=== PATIENT | male | born 1985 | race Caucasian/White ===

== ENCOUNTER 2020-07-16 22:17 | Emergency (ER) | payer OTHER, SELFPAY ==
--- NOTE | ~2020-07-16 | CT_ITS ---
EXAMINATION: CT ABDOMEN AND PELVIS WITH CONTRAST CLINICAL INFORMATION: Pain. COMPARISON: None. TECHNIQUE: Contiguous axial thin section helical images of the abdomen and pelvis were performed following the administration of 85 mL of intravenous Omnipaque 3-50. The data set was reformatted in the coronal and sagittal planes and reviewed on an independent workstation. DLP: mGy-cm. FINDINGS: The visualized lung bases are clear. The visualized portions of the heart are unremarkable. The liver is of normal size and attenuation without focal lesions nor intrahepatic biliary ductal dilation. A normal gallbladder is identified. There is no wall thickening or discernible pericholecystic fluid. The spleen, pancreas, adrenal glands are unremarkable. Both kidneys are of normal size and attenuation without hydronephrosis or nephrolithiasis. Following the administration of IV contrast, prompt symmetric nephrograms are displayed. There is no abdominal free fluid. There is neither mesenteric nor retroperitoneal lymphadenopathy. Normal unopacified loops of small and large bowel are identified. A normal appendix is identified. There is no pelvic free fluid. The urinary bladder is unremarkable. There is neither pelvic nor inguinal lymphadenopathy. Bone windows: Neither sclerotic nor lytic bone lesions are identified. CT/CT abdomen pelvis w con IMPRESSION: No acute abdominal or pelvic inflammatory or infectious processes. Automated exposure control (Care Dose) Adjustment of the mA and/or kv according to patient size (this includes techniques or standardized protocols for targeted exams where dose is matched to indication / reason for exam; i.e. extremities or head).
--- NOTE | ~2020-07-16 | US_ITS ---
EXAMINATION: US SCROTUM CLINICAL INFORMATION: Bilateral testicular pain. COMPARISON: None. TECHNIQUE: A sonogram of the scrotum was performed assessing lopez-scale appearance and color Doppler flow. FINDINGS: RIGHT: Right testicle measures 4.6 x 2.0 x 3.2 cm, volume 14.7 mL. Parenchymal echotexture is normal. No focal testicular parenchymal lesions are visualized. Normal symmetric intratesticular flow is visualized. Right epididymal head is normal in size. There is a 2 mm right epididymal head cyst. There is a small right hydrocele. No varicocele is present. LEFT: Left testicle measures 4.2 x 1.8 x 2.6 cm, volume 10.0 mL. Parenchymal echotexture is normal. No focal testicular parenchymal lesions are visualized. Normal symmetric intratesticular flow is visualized. Left epididymal head is normal in size. There is a 7 mm left epididymal head cyst. There is a small left hydrocele. No varicocele is present. US/US scrotum IMPRESSION: Normal testes. No testicular torsion. Small bilateral hydroceles.
--- NOTE | ~2020-07-16 | US_ITS ---
EXAMINATION: US SCROTUM CLINICAL INFORMATION: Bilateral testicular pain. COMPARISON: None. TECHNIQUE: A sonogram of the scrotum was performed assessing lopez-scale appearance and color Doppler flow. FINDINGS: RIGHT: Right testicle measures 4.6 x 2.0 x 3.2 cm, volume 14.7 mL. Parenchymal echotexture is normal. No focal testicular parenchymal lesions are visualized. Normal symmetric intratesticular flow is visualized. Right epididymal head is normal in size. There is a 2 mm right epididymal head cyst. There is a small right hydrocele. No varicocele is present. LEFT: Left testicle measures 4.2 x 1.8 x 2.6 cm, volume 10.0 mL. Parenchymal echotexture is normal. No focal testicular parenchymal lesions are visualized. Normal symmetric intratesticular flow is visualized. Left epididymal head is normal in size. There is a 7 mm left epididymal head cyst. There is a small left hydrocele. No varicocele is present. US/US scrotum doppler IMPRESSION: Normal testes. No testicular torsion. Small bilateral hydroceles.
[2020-07-16 22:22] VITALS: BP 153/89; PULSE 103; RESP 16; TEMP 36.9; O2SAT 97; BMI 47.9
--- NOTE | 2020-07-16 22:41 | ED_ITS ---
HPI - Back Pain/Injury General Chief Complaint: Back Pain/Injury Stated Complaint: back pain Source: patient Mode of arrival: ambulatory Limitations: no limitations History of Present Illness HPI Narrative: 34-year-old male with past medical history of obesity, hypertension, hyperlipidemia, and chronic back pain presents with 10/10 lower back pain that radiates around his flanks into his groin and to bilateral nereida ticles. He states that this pain has been getting worse over the past 3 days, he is unable to stand straight, and states that his testicles hurt more when sitting down. He does not state to have any risk for sexually transmitted infection, does not use any IV drugs, and does not report any falls or trauma. He does not indicate any symptoms indicating cauda equina, and does have full sensation to all extremities. He does have palpitations and intermittent episodes of diaphoresis because of the pain. He does have decreased range of motion secondary to the pain. He denies chest pain or pressure, shortness of breath, shortness of breath on exertion, abdominal pain, abdominal distention dysuria, hematuria, melena, hematochezia, edema, fevers, chills, dizziness,, and loss of balance. MD elicited complaint: back pain Pertinent past history: prior back pain Onset (ago): day(s) Timing: constant Severity: severe Pain scale (0-10): 10 Similar Symptoms Previously: No Quality: tingling, spasming and throbbing Location: lumbar spine Radiation: abdomen, groin and other (Testicles) Exacerbating factors: movement, sitting upright and walking Relieving factors: none Associated symptoms: difficulty walking and other (Testicular pain) Treatments prior to arrival: NSAIDS, acetaminophen and other medications Work related injury: No Related Data Previous Rx's Medication Instructions Recorded diazepam [Valium] 5 mg PO BID PRN #10 tab 07/17/20 oxycodone 5 mg PO Q8H PRN #7 tab 07/17/20 Allergies Allergy/AdvReac Type Severity Reaction Status Date / Time ENVIRONMENTAL Allergy Mild RUNNY Uncoded 07/16/20 22:21 STUFFY NOSE Review of Systems Review of Systems: Constitutional: No Weight loss, No Fever, No Chills, ENT/Mouth: No Hearing loss, No Ear Pain, No Nasal Congestion, No Sinus Pain, No Hoarseness, No sore throat, No Rhinorrhea, No Swallowing Difficulty Cardiovascular: No Chest Pain, No SOB Respiratory: No Cough, No Dyspnea Gastrointestinal: Positive groin pain bilaterally, No Nausea, No Vomiting, No Diarrhea, No abdominal Pain, No Hematochezia, No Melena Genitourinary: Positive testicular pain, No Dysuria, No Urinary Frequency, No Hematuria, No Urinary Incontinence, Musculoskeletal: positive back pain Skin: No Skin Lesions, No rash Neuro: No Weakness, No Numbness, No Paresthesias, no loss of bowel or bladder in continence, no saddle anesthesia Yes all other systems are reviewed and are negative [facility] Past Medical History Attestation statement: The following information was validated with the patient. Source: old records reviewed Medical History Asthma High cholesterol Hypertension Social History Social History Advance Directives: No Advance Directives Information Provided: No Physical Exam Vital Signs: Vital Signs: Last Vital Signs Temp 98.9 F 07/16/20 23:51 Pulse 78 07/16/20 23:51 Resp 18 07/16/20 23:51 BP 113/75 07/16/20 23:51 Pulse Ox 98 07/16/20 23:51 Body Mass Index 47.9 Appearance: Alert. Oriented X3. Moderate distress. Head: Normal external exam. Normocephalic. Atraumatic. No Bowling signs noted. No raccoon eyes noted Eyes: PERRLA. EOMI. Conjunctiva and sclera normal. Eyelids normal. ENT: TM's Normal. Pharynx normal. Uvula midline. Moist mucous membranes. No trismus noted. No drooling noted. No muffled voice noted. Neck: Normal inspection. Neck supple. No adenopathy. No meningeal signs. CVS: Tachycardic heart rate and rhythm. Heart sound normal. No murmurs noted. Pulses equal to all extremities. Respiratory: No respiratory distress. Painless inspiration. Breath sounds normal. No wheezes/rales/rhonchi noted. Chest nontender. No accessory muscle usage noted or decreased air movement noted. Abdomen: Soft and nontender, obese. Bowel sounds normal in all 4 quadrants. No distention noted. No organomegaly noted. No visible injury noted. Back: Positive bilateral CVA tenderness. Decreased spinal range of motion noted. Unable to stand up straight. Genitourinary: Penis and testicle physically normal, no hydrocele or varicocele noted, no testicular masses, pain increased on testicular elevation. Sensation normal. No penile discharge or lesions noted. Skin: Skin warm and dry. Normal skin color. Normal skin turgor. No rashes/lesions/lacerations noted. Extremities: No lower extremity edema. Extremities exhibit normal range of motion. Extremities nontender. Neuro: cranial nerves 2-12 intact, no focal neural deficits, strength 5/5 to all extremities, No motor deficit. No sensory deficit. Patellar Reflexes normal. Course Course Course Narrative: 34-year-old male with past medical history of obesity, hypertension, hyperlipidemia, and chronic back pain presents with 10/10 lower back pain that radiates around his flanks into his groin and to bilateral testi cles. He states that this pain has been getting worse over the past 3 days, he is unable to stand straight, and states that his testicles hurt more when sitting down. Plan of care is for CBC, Chem 7, urinalysis, scrotal ultrasound, CT scan of abdomen and pelvis. Labs unremarkable, scrotal ultrasound shows small hydroceles bilaterally, CT abdomen pelvis negative for acute findings requiring emergent intervention. Plan of care to discharge home with supportive measures, follow up with Urology as well as pain management. Patient verbalized understanding of and agrees plan of care to discharge home. MDM - Back Pain/Injury MDM Narrative Medical decision making narrative: Testicular torsion, varicocele, hydrocele Differential Diagnosis Differential diagnosis: Likely lumbar radiculopathy, sciatica, strain of lumbar region, pyelonephritis and discitis Medical Records Attestation: I reviewed the patient's medical records. Lab Data Attestation: I reviewed the patient's lab results. Result diagrams: 07/16/20 23:37 07/16/20 23:37 Labs: Lab Results 07/16/20 07/16/20 Range/Units 23:37 23:37 WBC 11.5 H (4.8-10.8) X10*3/uL RBC 5.38 (4.60-5.80) X10*6/uL Hgb 14.8 (14.0-18.0) g/dl Hct 43.9 (42-52) % MCV 81.6 (80-98) fL MCH 27.5 (27.0-33.0) pg MCHC 33.7 (31.0-36.0) g/dl RDW 13.0 (11.0-16.0) % Plt Count 284 (160-400) X10*3/uL MPV 9.8 (9.4-12.4) fL Immature Gran % (Auto) 0.3 (0.0-0.4) % Neut % (Auto) 65.6 (45-73) % Lymph % (Auto) 24.3 (20-40) % [place] % (Auto) 8.5 (2-11) % Eos % (Auto) 1.0 (0-4) % Baso % (Auto) 0.3 (0-2) % Lymph # (Auto) 2.8 (1.2-4.9) X10*3/uL [place] # (Auto) 1.0 (0.1-1.2) X10*3/uL Eos # (Auto) 0.1 (0.0-0.4) X10*3/uL Baso # (Auto) 0.0 (0.0-0.2) X10*3/uL Abs Immat Gran (auto) 0.04 H (0.00-0.03) X10*3/uL Absolute Neuts (auto) 7.5 (2.0-8.3) X10*3/uL Absolute Nucleated RBC 0.000 (0.0-0.012) X10*3/uL Nucleated RBC % (auto) 0.0 (0.0-0.2) /100WBC Sodium 140 (135-145) mmol/L Potassium 4.1 (3.3-5.1) mmol/L Chloride 105 (96-108) mmol/L Carbon Dioxide 24 (22-29) mmol/L Anion Gap 15 (12-20) BUN 14 (9-16) mg/dL Creatinine 0.98 (0.5-1.4) mg/dL Estim Creat Clear Calc 140.2 Estimated GFR > 60 Random Glucose 103 (60-115) mg/dL Calcium 9.5 (8.4-10.2) mg/dL Imaging Data CT abdomen pelvis: Attestation: I personally reviewed and interpreted this imaging study as follows: Radiologist's impression: EXAMINATION: CT ABDOMEN AND PELVIS WITH CONTRAST CLINICAL INFORMATION: Pain. COMPARISON: None. TECHNIQUE: Contiguous axial thin section helical images of the abdomen and pelvis were performed following the administration of 85 mL of intravenous Omnipaque 3-50. The data set was reformatted in the coronal and sagittal planes and reviewed on an independent workstation. DLP: mGy-cm. FINDINGS: The visualized lung bases are clear. The visualized portions of the heart are unremarkable. The liver is of normal size and attenuation without focal lesions nor intrahepatic biliary ductal dilation. A normal gallbladder is identified. There is no wall thickening or discernible pericholecystic fluid. The spleen, pancreas, adrenal glands are unremarkable. Both kidneys are of normal size and attenuation without hydronephrosis or nephrolithiasis. Following the administration of IV contrast, prompt symmetric nephrograms are displayed. There is no abdominal free fluid. There is neither mesenteric nor retroperitoneal lymphadenopathy. Normal unopacified loops of small and large bowel are identified. A normal appendix is identified. There is no pelvic free fluid. The urinary bladder is unremarkable. There is neither pelvic nor inguinal lymphadenopathy. Bone windows: Neither sclerotic nor lytic bone lesions are identified. CT/CT abdomen pelvis w con IMPRESSION: No acute abdominal or pelvic inflammatory or infectious processes. Automated exposure control (Care Dose) Adjustment of the mA and/or kv according to patient size (this includes techniques or standardized protocols for targeted exams where dose is matched to indication / reason for exam; i.e. extremities or head). Scrotal ultrasound: Attestation: I personally reviewed and interpreted this imaging study as follows: Radiologist's impression: EXAMINATION: US SCROTUM CLINICAL INFORMATION: Bilateral testicular pain. COMPARISON: None. TECHNIQUE: A sonogram of the scrotum was performed assessing lopez-scale appearance and color Doppler flow. FINDINGS: RIGHT: Right testicle measures 4.6 x 2.0 x 3.2 cm, volume 14.7 mL. Parenchymal echotexture is normal. No focal testicular parenchymal lesions are visualized. Normal symmetric intratesticular flow is visualized. Right epididymal head is normal in size. There is a 2 mm right epididymal head cyst. There is a small right hydrocele. No varicocele is present. LEFT: Left testicle measures 4.2 x 1.8 x 2.6 cm, volume 10.0 mL. Parenchymal echotexture is normal. No focal testicular parenchymal lesions are visualized. Normal symmetric intratesticular flow is visualized. Left epididymal head is normal in size. There is a 7 mm left epididymal head cyst. There is a small left hydrocele. No varicocele is present. US/US scrotum IMPRESSION: Normal testes. No testicular torsion. Small bilateral hydroceles. Discharge Plan Discharge Clinical Impression: Lumbar radiculopathy Strain of lumbar region Qualifiers: Encounter type: initial encounter Qualified Code(s): S39.012A - Strain of muscle, fascia and tendon of lower back, initial encounter Sciatica Qualifiers: Laterality: bilateral Qualified Code(s): M54.31 - Sciatica, right side Degenerative disc disease Qualifiers: Spinal region: lumbar Qualified Code(s): M51.36 - Other intervertebral disc degeneration, lumbar region Patient Disposition: Home, Self-Care Instructions: Sciatica (ED), Degenerative Disc Disease (ED) Additional Instructions: You were evaluated for lower back pain and spasms. You do have known degenerative disc disease, CT scan does not show any abnormal findings requiring emergent neurological intervention. We will prescribe Valium for muscle spasms, and oxycodone for pain management. Oxycodone is a narcotic and has a high risk for addiction and abuse. Do not drive or operate machinery while taking this medication. This medication can increase risk for falls, cause constipation, and delayed reaction time Valium is a benzo diazepam and has high risk for addiction and abuse. Do not drive or operate machinery while taking this medication. Do not use alcohol with oxycodone or Valium. You must follow-up with Pain Management, Dr. Mullins. It is highly recommended that you have an MRI as an outpatient to further investigate your back pain. Your scrotal ultrasound showed bilateral small hydroceles. You may consider following up with Urology. I have provided you with a referral number for Dr. Stoner. Thank you for choosing this emergency department for evaluation. Please follow-up with primary care physician as needed. Return to the emergency department for any new, concerning, or worsening symptoms. Prescriptions: New oxycodone 5 mg tablet 5 mg PO Q8H PRN (Reason: pain) Qty: 7 RF: 0 diazepam [Valium] 5 mg tablet 5 mg PO BID PRN (Reason: muscle spasm) Qty: 10 RF: 0 Referrals: Ovidio Stoner MD [Physician] - 2 days (Bilateral hydrocele) Luca Mullins MD [Physician] - 2 days (Lower back pain, muscular spasms, sciatica, degenerative disc disease)
[2020-07-16] MEDS: diazePAM 5 MG TABLET PO (23:38)
[2020-07-16 23:39] VITALS: RESP 22
[2020-07-16] MEDS: Morphine Sulfate 4 MG/ML CARTRIDGE IVPUSH (23:39)
[2020-07-16] MEDS: Ketorolac Tromethamine 30 MG/ML VIAL IVPUSH (23:39)
[2020-07-16] MEDS: 0.9 % Sodium Chloride 1,000 ML 999 ML IVCONT (23:40)
[2020-07-16 23:43] LABS: MANUAL DIFF FLAG NO
[2020-07-16 23:44] LABS: Basophils Percent Auto 0.3 % (0-2); Eosinophils Absolute Auto 0.1 X10*3/uL (0.0-0.4); Hematocrit 43.9 % (42-52); Hemoglobin 14.8 g/dl (14.0-18.0); Imm Gran Abs Auto 0.04 X10*3/uL (0.00-0.03); Imm Gran Pct Auto 0.3 % (0.0-0.4); Lymphocytes Absolute Auto 2.8 X10*3/uL (1.2-4.9); Lymphocytes Percent Auto 24.3 % (20-40); Mean Corpuscular HGB Conc 33.7 g/dl (31.0-36.0); Mean Corpuscular Hemoglobin 27.5 pg (27.0-33.0); Mean Corpuscular Volume 81.6 fL (80-98); Mean Platelet Volume 9.8 fL (9.4-12.4); Monocytes Percent Auto 8.5 % (2-11); Neutrophils Absolute Auto 7.5 X10*3/uL (2.0-8.3); Neutrophils Percent Auto 65.6 % (45-73); Platelet Count 284 X10*3/uL (160-400); Red Blood Count 5.38 X10*6/uL (4.60-5.80); White Blood Count 11.5 X10*3/uL (4.8-10.8)
[2020-07-16 23:51] VITALS: BP 113/75; PULSE 78; RESP 18; TEMP 37.2; O2SAT 98
[2020-07-17 00:09] LABS: Anion Gap 15 (12-20); Blood Urea Nitrogen 14 mg/dL (9-16); Calcium 9.5 mg/dL (8.4-10.2); Carbon Dioxide 24 mmol/L (22-29); Chloride 105 mmol/L (96-108); Creatinine Clr Calc Pharmacy 140.2; Estimated Glomerular Filt Rate > 60; Glucose Random 103 mg/dL (60-115); Potassium 4.1 mmol/L (3.3-5.1); Sodium 140 mmol/L (135-145)
[2020-07-17] MEDS: iohexoL 350 MG/ML 100 ML INFUS..BTL 85 ML IV (00:50)
[2020-07-17 01:57] LABS: Appearance Urine CLEAR; Color Urine YELLOW; Glucose Urine UA NEG (NEG); Leukocyte Esterase Urine NEG (NEG); Nitrite Urine NEG (NEG); Specific Gravity - Urine 1.015 (1.005-1.025); Urine Blood NEG (NEG); Urine Ketones NEG (NEG); Urine Protein NEG (NEG-TRACE)
== END 2020-07-17 01:54 | disposition home or self-care (01) ==
PROVIDERS: Nurse Practitioner Family; Emergency Provider Emergency Medicine
DX: M54.16 Radiculopathy, lumbar region (principal); M54.41 Lumbago with sciatica, right side; M51.36 Other intervertebral disc degeneration, lumbar region; S39.012A Strain of muscle, fascia and tendon of lower back, initial encounter; X58.XXXA Exposure to other specified factors, initial encounter; I10 Essential (primary) hypertension; E78.5 Hyperlipidemia, unspecified; Y93.9 Activity, unspecified; Y92.9 Unspecified place or not applicable; Y99.9 Unspecified external cause status
CPT/HCPCS: 36415; 74177; 76870; 80048; 81003; 85025; 93975; 96361; 96374; 96375; 99284; J1885; J2270; Q9967

== ENCOUNTER 2020-11-29 10:03 | Emergency (ER) | payer OTHER, SELFPAY ==
[2020-11-29 10:38] VITALS: BP 159/97; PULSE 92; RESP 18; TEMP 36.4; O2SAT 99; BMI 47.0
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
== END 2020-11-29 11:36 | disposition home or self-care (01) ==
PROVIDERS: Emergency Provider Emergency Medicine; PCP Internal Medicine
DX: R51.9 Headache, unspecified (principal); S16.1XXA Strain of muscle, fascia and tendon at neck level, initial encounter; S39.012A Strain of muscle, fascia and tendon of lower back, initial encounter; V43.52XA Car driver injured in collision with other type car in traffic accident, initial encounter; I10 Essential (primary) hypertension; Y93.89 Activity, other specified; Y92.414 Local residential or business street as the place of occurrence of the external cause; Y99.9 Unspecified external cause status
CPT/HCPCS: 99283

== ENCOUNTER 2021-02-02 11:09 | Observation (INO) | payer OTHER, SELFPAY ==
--- NOTE | ~2021-02-02 | XR_ITS ---
EXAMINATION: XR CHEST CLINICAL INFORMATION: Chest pain. COMPARISON: Chest radiograph dated from 02/06/2017. TECHNIQUE: AP view of the chest was obtained. FINDINGS: No significant abnormality is noted involving the heart, lungs, mediastinum, bony thorax or soft tissues. XR/XR chest 1V IMPRESSION: Unremarkable examination.
--- NOTE | ~2021-02-02 | CT_ITS ---
EXAMINATION: CT ABDOMEN AND PELVIS WITHOUT CONTRAST CLINICAL INFORMATION: Left-sided abdominal pain. Rule out diverticulitis. COMPARISON: CT abdomen/pelvis dated from 07/17/2020. TECHNIQUE: Multidetector volumetric imaging was performed from the superior aspect of the liver through the pubic symphysis. Sagittal and coronal reformatted images were obtained on the technologist's workstation. This CT examination was performed using dose optimization techniques as appropriate, variously including the following: *Automated exposure control *Adjustment of mA and/or kV according to patient size (this includes techniques or standardized protocols for targeted exams where dose is matched to indication/reason for exam; i.e. extremities or head) *Use of iterative reconstruction technique DLP: 1202 mGy-cm FINDINGS: LUNG BASES: Minimal mosaic attenuation of the lung bases suggesting some degree of air trapping or expiratory images. Mild subsegmental atelectasis. No focal consolidation or pleural effusion. No pericardial effusion. LIVER, GALLBLADDER, AND BILIARY TREE: The noncontrast liver is normal in size, shape, and attenuation. No focal hepatic lesion or biliary ductal dilatation is present. The gallbladder is unremarkable with no evidence of radiopaque gallstones, gallbladder wall thickening, or obvious pericholecystic inflammatory changes. PANCREAS: No focal abnormalities. The main pancreatic duct is nondilated. No peripancreatic free fluid or fat stranding. SPLEEN: Unremarkable. ADRENAL GLANDS: Unremarkable. KIDNEYS AND URETERS: The kidneys are normal in size, shape, and attenuation. No hydronephrosis, hydroureter, or calculi seen. No perinephric stranding. BLADDER: Unremarkable. GASTROINTESTINAL TRACT: The stomach and the small bowel are nondilated. There is diverticulosis of the distal colon without significant inflammatory changes to suspect acute diverticulitis. There is a long and fluid-filled appendix measuring up to 10 mm in maximum diameter without significant surrounding inflammatory changes. ABDOMINAL WALL: Small fat-containing umbilical hernia. LYMPH NODES: Mild mesenteric fat stranding at the root of the mesentery for instance as visualized on coronal image 62 of series 5 is unchanged and of uncertain significance. This likely accentuated by volume averaging. No lymphadenopathy. VASCULAR: Unremarkable. PELVIC VISCERA: Unremarkable. OSSEOUS STRUCTURES: No acute or aggressive osseous abnormalities. Unchanged degenerative sclerosis at T12-L1. CT/CT abdomen pelvis wo con IMPRESSION: Colonic diverticulosis without significant associated inflammatory changes to suspect acute diverticulitis. The appendix is prominent but without significant surrounding inflammatory changes or wall thickening. Findings could potentially represent very mild early acute appendicitis and clinical correlation is needed for a definite diagnosis. Other differential consideration is an appendiceal mucocele. The report will be called to the ordering clinician by a [place] [facility] [employer] Broker.
[2021-02-02 11:19] VITALS: BP 173/104; PULSE 81; RESP 18; O2SAT 98; BMI 48.5
--- NOTE | 2021-02-02 12:11 | ECG_ITS ---
Test Reason : CHEST PAIN Blood Pressure : / mmHG Vent. Rate : 076 BPM Atrial Rate : 076 BPM P-R Int : 168 ms QRS Dur : 098 ms QT Int : 376 ms P-R-T Axes : 048 027 -04 degrees QTc Int : 423 ms Normal sinus rhythm Nonspecific T wave abnormality Abnormal ECG No previous ECGs available Referred By: Ginger Perez Electronically Signed By:IDA BEDOYA MD
--- NOTE | 2021-02-02 12:22 | ED.CHESTPAIN ---
HPI - Chest Pain General Chief Complaint: Chest Pain Stated Complaint: ABD PAIN MIGRANE CHEST PAIN Time Seen by Provider: 02/02/21 12:10 Source: patient and family Mode of arrival: ambulatory Limitations: no limitations History of Present Illness HPI narrative: 35-year-old male came in for evaluation of abdominal pain. Patient been having abdominal pain for the last 5 days, feeling nauseous, and vomited , patient also been getting migraines, symptoms is been constant for the past 5 days, described as moderate 5 out of 10, associated with nausea and vomiting every now and then, patient was at work today when he felt nauseous and tried to vomit started to have difficulty breathing and chest pain. Patient was sent to the hospital for further evaluation. Related Data Previous Rx's Medication Instructions Recorded diazepam 5 mg tablet (Valium) 5 mg PO BID PRN #10 tab 07/17/20 oxycodone 5 mg tablet 5 mg PO Q8H PRN #7 tab 07/17/20 cyclobenzaprine 5 mg tablet 5 mg PO TID PRN #14 tab 11/29/20 ibuprofen 600 mg tablet 600 mg PO Q6H PRN #20 tab 11/29/20 oxycodone 5 mg tablet 5 mg PO Q6H PRN #10 tab 11/29/20 Allergies Allergy/AdvReac Type Severity Reaction Status Date / Time ENVIRONMENTAL Allergy Mild RUNNY Uncoded 07/16/20 22:21 STUFFY NOSE Review of Systems Review of Systems: All other systems are reviewed and are negative Constitutional: Reports as per HPI and Reports no additional constitutional complaints Eyes: Reports as per HPI and Reports no additional eye complaints Reports system reviewed and no additional complaints, except as documented Cardiovascular: Reports as per HPI and Reports no additional cardiovascular complaints Respiratory: Reports as per HPI and Reports no additional respiratory complaints Gastrointestinal: Reports as per HPI and Reports no additional gastrointestinal complaints Genitourinary: Reports no additional female genitourinary complaints Musculoskeletal: Reports no additional musculoskeletal complaints Skin/Breast: Reports system reviewed and no additional complaints, except as docu Psychiatric: Reports no additional psychiatric complaints Endocrine: Reports no additional endocrine complaints Hematologic/Lymphatic: Reports no additional hematologic/lymphatic complaints Allergic/Immunologic: Reports no additional allergic/immunologic complaints Reports system reviewed and no additional complaints, except as documented and Reports Abnormal speech present [facility] Past Medical History Medical History (Updated 02/02/21 @ 15:50 by Chi Damon MD) Asthma Chronic back pain Epigastric pain High cholesterol Hypertension Morbid obesity Sleep apnea Social History Social History Advance Directives: Yes Advance Directives Information Provided: Yes Advance Directives on File: No Physical Exam Vital Signs: Vital Signs: Last Vital Signs Pulse 81 02/02/21 15:35 Resp 16 02/02/21 15:35 BP 168/93 H 02/02/21 15:35 Pulse Ox 97 02/02/21 15:35 Body Mass Index 48.5 Vital signs have been reviewed as appeared to be correct. Blood pressure normal. Heart rate normal. Respiration rate normal. Temperature normal. Oxygen saturation normal. Appearance: Alert. Oriented X3. No acute distress. Head: Normal external exam. Normocephalic. Atraumatic. No Bowling signs noted. No raccoon eyes noted Eyes: PERRLA. EOMI. Conjunctiva and sclera normal. Eyelids normal. ENT: TM's Normal. Pharynx normal. Uvula midline. Moist mucous membranes. No trismus noted. No drooling noted. No muffled voice noted. Neck: Normal inspection. Neck supple. FROM. No adenopathy. Thyroid Normal. No meningeal signs. No neck mass noted. CVS: Normal heart rate and rhythm. Heart sound normal. No murmurs noted. Pulses normal throughout. Respiratory: No respiratory distress. Painless inspiration. Breath sounds normal. No wheezes/rales/rhonchi noted. Chest nontender. No accessory muscle usage noted or decreased air movement noted. Abdomen: Soft and nontender. Bowel sounds normal in all 4 quadrants. No distention noted. No organomegaly noted. No visible injury noted. Back: No CVA tenderness. Full range of motion noted. Skin: Skin warm and dry. Normal skin color. Normal skin turgor. No rashes/lesions/lacerations noted. Extremities: No lower extremity edema. Extremities exhibit normal range of motion. Extremities nontender. Neuro: Oriented X 3. Cranial nerve exam: II-XII are grossly intact No motor deficit. No sensory deficit. Reflexes normal. Course Course Course Narrative: Assessment and plan. 35-year-old male came in for abdominal pain, slight leukocytosis, CT of the abdomen pelvis concern of prominent appendix sinus could represent an acute in early appendicitis. Case discussed with Dr. Damon awaiting for surgical evaluation in the emergency department. Reevaluation(s) Reevaluation #1: Patient has been seen and evaluated by Dr. Damon in the emergency department, patient will be admitted for observation and serial abdominal exams. Time: 15:40 MDM - Chest Pain Medical Records Data Attestation: I reviewed the patient's medical records. Lab Data Attestation: I reviewed the patient's lab results. Result diagrams: 02/02/21 12:22 02/02/21 12:22 Labs: Lab Results 02/02/21 02/02/21 02/02/21 Range/Units 12:22 12:22 12:22 WBC 10.9 H (4.8-10.8) X10*3/uL RBC 5.44 (4.60-5.80) X10*6/uL Hgb 15.1 (14.0-18.0) g/dl Hct 45.0 (42.0-52.0) % MCV 82.7 (80.0-98.0) fL MCH 27.8 (27.0-33.0) pg MCHC 33.6 (31.0-36.0) g/dl RDW 13.0 (11.0-16.0) % Plt Count 250 (160-400) X10*3/uL MPV 9.7 (9.4-12.4) fL Immature Gran % (Auto) 0.3 (0.0-0.4) % Neut % (Auto) 77.2 H (45-73) % Lymph % (Auto) 15.9 L (20-40) % [place] % (Auto) 6.1 (2-11) % Eos % (Auto) 0.2 (0-4) % Baso % (Auto) 0.3 (0-2) % Lymph # (Auto) 1.7 (1.2-4.9) X10*3/uL [place] # (Auto) 0.7 (0.1-1.2) X10*3/uL Eos # (Auto) 0.0 (0.0-0.4) X10*3/uL Baso # (Auto) 0.0 (0.0-0.2) X10*3/uL Abs Immat Gran (auto) 0.03 (0.00-0.03) X10*3/uL Absolute Neuts (auto) 8.39 H (2.0-8.3) x10*3/uL Absolute Nucleated RBC 0.000 (0.0-0.012) X10*3/uL Nucleated RBC % (auto) 0.0 (0.0-0.2) /100WBC D-Dimer < 200 NG/ML Sodium 139 (135-145) mmol/L Potassium 3.9 (3.3-5.1) mmol/L Chloride 104 (96-108) mmol/L Carbon Dioxide 27 (22-29) mmol/L Anion Gap 12 (12-20) BUN 10 (9-16) mg/dL Creatinine 0.94 (0.5-1.4) mg/dL Estim Creat Clear Calc 145.9 Estimated GFR > 60 Random Glucose 90 (60-115) mg/dL Calcium 9.2 (8.4-10.2) mg/dL Total Bilirubin 0.5 (0.0-1.0) mg/dL Direct Bilirubin 0.2 (0.0-0.5) mg/dL AST 20 (5-37) U/L ALT 28 (0-40) U/L Alkaline Phosphatase 84 (39-117) U/L Troponin I High Sens (<3.5-35.0) ng/L Total Protein 8.1 H (6.5-8.0) g/dL Albumin 4.5 (3.5-5.0) g/dL Lipase 22 (8-78) U/L 02/02/21 Range/Units 12:22 WBC (4.8-10.8) X10*3/uL RBC (4.60-5.80) X10*6/uL Hgb (14.0-18.0) g/dl Hct (42.0-52.0) % MCV (80.0-98.0) fL MCH (27.0-33.0) pg MCHC (31.0-36.0) g/dl RDW (11.0-16.0) % Plt Count (160-400) X10*3/uL MPV (9.4-12.4) fL Immature Gran % (Auto) (0.0-0.4) % Neut % (Auto) (45-73) % Lymph % (Auto) (20-40) % [place] % (Auto) (2-11) % Eos % (Auto) (0-4) % Baso % (Auto) (0-2) % Lymph # (Auto) (1.2-4.9) X10*3/uL [place] # (Auto) (0.1-1.2) X10*3/uL Eos # (Auto) (0.0-0.4) X10*3/uL Baso # (Auto) (0.0-0.2) X10*3/uL Abs Immat Gran (auto) (0.00-0.03) X10*3/uL Absolute Neuts (auto) (2.0-8.3) x10*3/uL Absolute Nucleated RBC (0.0-0.012) X10*3/uL Nucleated RBC % (auto) (0.0-0.2) /100WBC D-Dimer NG/ML Sodium (135-145) mmol/L Potassium (3.3-5.1) mmol/L Chloride (96-108) mmol/L Carbon Dioxide (22-29) mmol/L Anion Gap (12-20) BUN (9-16) mg/dL Creatinine (0.5-1.4) mg/dL Estim Creat Clear Calc Estimated GFR Random Glucose (60-115) mg/dL Calcium (8.4-10.2) mg/dL Total Bilirubin (0.0-1.0) mg/dL Direct Bilirubin (0.0-0.5) mg/dL AST (5-37) U/L ALT (0-40) U/L Alkaline Phosphatase (39-117) U/L Troponin I High Sens < 3.5 (<3.5-35.0) ng/L Total Protein (6.5-8.0) g/dL Albumin (3.5-5.0) g/dL Lipase (8-78) U/L Imaging Data CT scan - abdomen: Radiologist's impression: Colonic diverticulosis without significant associated inflammatory changes to suspect acute diverticulitis. ? The appendix is prominent but without significant surrounding inflammatory changes or wall thickening. Findings could potentially represent very mild early acute appendicitis and clinical correlation is needed for a definite diagnosis. Other differential consideration is an appendiceal mucocele. ? The report will be called to the ordering clinician by a [place] Radiology Physician Market Research Interviewer. Chest x-ray: Attestation: I personally reviewed and interpreted this imaging study as follows: Radiologist's impression: No acute intrathoracic pathology. ECG Data ECG #1: Attestation: I personally reviewed and interpreted this ECG as follows: Interpretation: Normal sinus rhythm at 76 beats per minute, normal axis deviation, normal intervals, no ST-T changes. Discharge Plan Discharge Clinical Impression: Atypical chest pain, Abdominal pain Patient Disposition: Admitted As Inpatient
[2021-02-02 12:29] LABS: MANUAL DIFF FLAG NO
[2021-02-02 12:31] LABS: Basophils Percent Auto 0.3 % (0-2); Eosinophils Percent Auto 0.2 % (0-4); Hemoglobin 15.1 g/dl (14.0-18.0); Imm Gran Abs Auto 0.03 X10*3/uL (0.00-0.03); Imm Gran Pct Auto 0.3 % (0.0-0.4); Lymphocytes Absolute Auto 1.7 X10*3/uL (1.2-4.9); Lymphocytes Percent Auto 15.9 % (20-40); Mean Corpuscular HGB Conc 33.6 g/dl (31.0-36.0); Mean Corpuscular Hemoglobin 27.8 pg (27.0-33.0); Mean Corpuscular Volume 82.7 fL (80.0-98.0); Mean Platelet Volume 9.7 fL (9.4-12.4); Monocytes Absolute Auto 0.7 X10*3/uL (0.1-1.2); Monocytes Percent Auto 6.1 % (2-11); Neutrophils Absolute Auto 8.39 x10*3/uL (2.0-8.3); Neutrophils Percent Auto 77.2 % (45-73); Platelet Count 250 X10*3/uL (160-400); Red Blood Count 5.44 X10*6/uL (4.60-5.80); White Blood Count 10.9 X10*3/uL (4.8-10.8)
[2021-02-02 12:46] LABS: D Dimer < 200 NG/ML
[2021-02-02 12:51] LABS: Alanine Aminotransferase 28 U/L (0-40); Albumin Level 4.5 g/dL (3.5-5.0); Alkaline Phosphatase 84 U/L (39-117); Anion Gap 12 (12-20); Aspartate Amino Transferase 20 U/L (5-37); Bilirubin Direct 0.2 mg/dL (0.0-0.5); Bilirubin Total 0.5 mg/dL (0.0-1.0); Blood Urea Nitrogen 10 mg/dL (9-16); Calcium 9.2 mg/dL (8.4-10.2); Carbon Dioxide 27 mmol/L (22-29); Chloride 104 mmol/L (96-108); Creatinine Clr Calc Pharmacy 145.9; Estimated Glomerular Filt Rate > 60; Glucose Random 90 mg/dL (60-115); Lipase 22 U/L (8-78); Potassium 3.9 mmol/L (3.3-5.1); Sodium 139 mmol/L (135-145); Total Protein 8.1 g/dL (6.5-8.0)
[2021-02-02 12:56] LABS: Troponin-I High Sensitivity < 3.5 ng/L (<3.5-35.0)
[2021-02-02 13:40] VITALS: BP 152/89; PULSE 74; RESP 13; O2SAT 98
[2021-02-02 15:35] VITALS: BP 168/93; PULSE 81; RESP 16; O2SAT 97
--- NOTE | 2021-02-02 15:36 | P.HPGS_ITS ---
History of Present Illness History of Present Illness Date of Service: 02/07/21 Chief complaint: Abdominal pain Narrative: Castro Taylor is a 35 year old male referred to me because of abdominal pain. He says he has been having this vague abdominal pain mostly epigastric area for 5-6 days now. He said this is been going to work regardless. He also says that he has been having chest pain the whole time. He says he was at work today in [facility] and he went to [facility] [employer] because of his chest pain and abdominal pain. He was therefore sent to the ER because of this. He also describes severe migraine for the past several days now. He describes being constipated chronically. He denies any nausea or vomiting. He also says he has sleep apnea and uses a CPAP at night. Review of Systems Constitutional: Constitutional: Denies chills and Denies fever(s) Cardiovascular: Cardiovascular: Denies chest pain, Denies dyspnea and Denies dyspnea on exertion Respiratory: Respiratory: Denies cough, Denies dyspnea and Denies dyspnea on exertion Gastrointestinal: Gastrointestinal: Denies hematochezia, Denies change in bowel habits and Reports constipation Genitourinary: Genitourinary: Denies hematuria and Denies difficulty urinating Musculoskeletal: Musculoskeletal: Reports back pain and Denies limited range of motion Neurologic: Denies focal weakness and Denies convulsions Psychiatric: Psychiatric: Denies depression and Denies mood swings PMFSH Past Medical History Medical History Asthma Chronic back pain Epigastric pain High cholesterol Hypertension Morbid obesity Sleep apnea Social History Social History (Updated 02/02/21 @ 18:07 by BARBIE Maravilla) Alcohol intake: never Patient Tobacco Use Status: Never used Tobacco Advance Directives Date on File: 02/03/21 service: No Current occupational status: employed Meds Allergies Allergy/AdvReac Type Severity Reaction Status Date / Time ENVIRONMENTAL Allergy Mild RUNNY Uncoded 07/16/20 22:21 STUFFY NOSE Home Medications Medication Instructions Recorded Confirmed Last Taken Type amlodipine 10 mg tablet 1 tab PO DAILY 02/02/21 02/02/21 02/02/21 History atorvastatin 20 mg tablet 1 tab PO DAILY 02/02/21 02/02/21 02/02/21 History lisinopril 10 mg tablet 1 tab PO DAILY 02/02/21 02/02/21 02/02/21 History Physical Exam Vital Signs: Vital Signs: Last Vital Signs Pulse 81 02/02/21 15:35 Resp 16 02/02/21 15:35 BP 168/93 H 02/02/21 15:35 Pulse Ox 97 02/02/21 15:35 Body Mass Index 48.5 Const: Other: Morbidly obese, appears anxious General: comfortable and no acute distress Orientation/consciousness: patient oriented x3 Neck: Neck: Yes no lymphadenopathy Resp: Auscultation: clear to auscultation bilaterally Cardio: Rhythm: regular rhythm GI: Other: Obese, soft, mild diffuse tenderness mostly in the epigastric area, no rebound or guarding, no Rovsing sign Palpation (GI): Soft to palpation and no guarding Neuro: General: patient oriented x3 Results Results Labs: Short CBC 02/02/21 Range/Units 12:22 WBC 10.9 H (4.8-10.8) X10*3/uL Hgb 15.1 (14.0-18.0) g/dl Hct 45.0 (42.0-52.0) % Plt Count 250 (160-400) X10*3/uL BMP 02/02/21 12:22 Sodium 139 Potassium 3.9 Chloride 104 Carbon Dioxide 27 BUN 10 Creatinine 0.94 Calcium 9.2 Liver Function 02/02/21 Range/Units 12:22 Total Bilirubin 0.5 (0.0-1.0) mg/dL Direct Bilirubin 0.2 (0.0-0.5) mg/dL AST 20 (5-37) U/L ALT 28 (0-40) U/L Alkaline Phosphatase 84 (39-117) U/L Albumin 4.5 (3.5-5.0) g/dL Abdomen CT scan report/results: report reviewed and image reviewed CT scan - chest: report reviewed and image reviewed Assessment and Plan (1) Epigastric pain: Status: Acute 35-year-old male with multiple complaints. He describes abdominal pain mostly in the epigastric area. He also says that he has chest pain and migraines. He says that he has been having this symptoms since Saturday which is about 5-6 days ago. He has no leukocytosis. His CAT scan shows as very minimally distended appendix with no inflammatory changes. Overall clinical picture is not consistent with acute appendicitis especially with duration and examination. He says that the pain is mostly in the epigastric area. He also describes chest pain but he has been worked up by the emergency physician. I discussed this with the ER staff and he has been ruled out for any cardiac pathology. I have reviewed his CAT scan and I do not see any other pathology. I will admit him for observation. He will be kept on clear liquids. I will ask for a hospitalist service in view of his hypertension and chest pain. His significant other Melanie was with him during the entire discussion. Quality Stroke Does the patient have a stroke diagnosis?: No VTE Prior VTE?: No VTE Risk Level:: Surgical - low VTE Device Contraindication: Treatment Not Indicated VTE Drug Contraindication: Treatment Not Indicated Procedures Date of Service Date of Service: 02/02/21
[2021-02-02 16:05] VITALS: BP 140/90; PULSE 74; RESP 16; TEMP 37.1; O2SAT 96
--- NOTE | 2021-02-02 17:06 | PHA.MEDREC ---
Pharmacy Consult ? Medication Reconciliation Pharmacy has completed the medication reconciliation. There are no remarkable issue for provider's attention. Cici Pacheco, ShefaliD
--- NOTE | 2021-02-02 17:29 | PM.EVENT ---
Event Note Date of Service: 02/02/21 Event Note: pt seen and examined c/o epig pain abd soft stable VS ?gastritis, PUD clinically not appendicitis PPI explained plan to pt he understands
--- NOTE | 2021-02-02 18:02 | P.CONIM_ITS ---
History of Present Illness Data of Consult Service Date: 02/02/21 <BARBIE Maravilla - Last Filed: 02/02/21 18:22> Requesting physician: Chi Damon <BARBIE Maravilla - Last Filed: 02/02/21 18:22> Primary Care Provider: Kevyn Clark MD <BARBIE Maravilla - Last Filed: 02/02/21 18:22> HPI Reason for consult: Hypertension, chest pain <BARBIE Maravilla Last Filed: 02/02/21 18:22> This is a 35-year-old male who presents to the emergency department with multiple complaints. He states for the past 7 days he has been having generalized abdominal pain worse in the epigastric region. He has had associated nausea and vomiting. He denies any diarrhea and reports constipation for the past 2-3 days. After an episode of vomiting today he also began having left-sided chest pain which does not change with movement or deep inspiration. It is reproducible on physical exam. He presented to the emergency department due to his persistent abdominal pain. Lab work was unremarkable. He underwent CT scan of the abdomen which showed prominent appendix without significant surrounding inflammatory changes or wall thickening. Findings could represent very mild early acute appendicitis. Although this was thought to be less likely related to appendicitis he was admitted to the surgical service for observation overnight. The hospitalists were asked to see him in consultation due to hypertension and chest pain. <BARBIE Maravilla - Last Filed: 02/02/21 18:22> Review of Systems Review of Systems: Yes all other systems are reviewed and are negative <BARBIE Maravilla Last Filed: 02/02/21 18:22> Constitutional: Constitutional: Denies chills and Denies fever(s) <BARBIE Maravilla Last Filed: 02/02/21 18:22> Cardiovascular: Cardiovascular: Reports chest pain, Reports Epigastric Pain and Denies dyspnea <BARBIE Maravilla Last Filed: 02/02/21 18:22> Respiratory: Respiratory: Denies cough and Denies dyspnea <BARBIE Maravilla Last Filed: 02/02/21 18:22> Gastrointestinal: Gastrointestinal: Reports constipation <BARBIE Maravilla Last Filed: 02/02/21 18:22> [facility] Medical History: Medical History Asthma Chronic back pain Epigastric pain High cholesterol Hypertension Morbid obesity Sleep apnea <BARBIE Maravilla - Last Filed: 02/02/21 18:22> Functional capacity: independent ambulation <BARBIE Maravilla - Last Filed: 02/02/21 18:22> Pertinent family history: dad - [place] multiple family members with diabetes <BARBIE Maravilla - Last Filed: 02/02/21 18:22> Social History: Social History (Updated 02/02/21 @ 18:07 by BARBIE Maravilla) Alcohol intake: never Patient Tobacco Use Status: Never used Tobacco Use of substances other than those prescribed or required for medical reasons: No Advance Directives: Yes Advance Directives Information Provided: Yes Advance Directives on File: No <BARBIE Maravilla - Last Filed: 02/02/21 18:22> Meds Allergies/Adverse reactions: Allergies Allergy/AdvReac Type Severity Reaction Status Date / Time ENVIRONMENTAL Allergy Mild RUNNY Uncoded 07/16/20 22:21 STUFFY NOSE <BARBIE Maravilla - Last Filed: 02/02/21 18:22> Active Medications: Current Medications Amlodipine Besylate (Amlodipine Besylate 10 Mg Tablet) 10 mg PO DAILY [facility]; Protocol Atorvastatin Calcium (Atorvastatin Calcium 20 Mg Tablet) 20 mg PO DAILY [facility] Sodium Chloride (Ns) 1,000 mls @ 100 mls/hr IVCONT .Q10H [facility] Lisinopril (Lisinopril 10 Mg Tablet) 10 mg PO DAILY K[facility]; Protocol Morphine Sulfate (Morphine Sulfate 2 Mg/Ml Cartridge) 2 mg IVPUSH Q3H PRN; Protocol PRN Reason: Pain, Severe (Pain Scale 7-10) Ondansetron HCl (Ondansetron Hcl 4 Mg/2 Ml Vial) 4 mg IVPUSH Q8H PRN PRN Reason: nausea Pharmacy Consult (Consult Rx Perform Med Rec) 1 each MISCELLANE ONCE PRN PRN Reason: Consult order Sodium Chloride (0.9 % Sodium Chloride Flush 3 Ml Syringe) 3 ml IVFLUSH QSHIFT KIMBERLY <BARBIE Maravilla - Last Filed: 02/02/21 18:22> Home medications: Home Medications Medication Instructions Recorded Confirmed Last Taken Type amlodipine 10 mg tablet 1 tab PO DAILY 02/02/21 02/02/21 02/02/21 History atorvastatin 20 mg tablet 1 tab PO DAILY 02/02/21 02/02/21 02/02/21 History lisinopril 10 mg tablet 1 tab PO DAILY 02/02/21 02/02/21 02/02/21 History <BARBIE Maravilla - Last Filed: 02/02/21 18:22> Physical Exam Vital Signs and Narrative: Vital Signs: Last Vital Signs Temp 98.8 F 02/02/21 16:05 Pulse 74 02/02/21 16:05 Resp 16 02/02/21 16:05 BP 140/90 H 02/02/21 16:05 Pulse Ox 96 02/02/21 16:05 Body Mass Index 48.5 <BARBIE Maravilla Last Filed: 02/02/21 18:22> Const: General: comfortable, awake and Physically active <BARBIE Maravilla Last Filed: 02/02/21 18:22> Nutritional Appearance: obese <BARBIE Maravilla Last Filed: 02/02/21 18:22> Orientation/consciousness: patient oriented x3 <BARBIE aMravilla - Last Filed: 02/02/21 18:22> HENMT: Head: Yes normocephalic and Yes atraumatic <BARBIE Maravilla - Last Filed: 02/02/21 18:22> Eyes: Sclerae: sclerae normal <BARBIE Maravilla Last Filed: 02/02/21 18:22> Pupils: Equal, round and reactive pupils present <BARBIE Maravilla Last Filed: 02/02/21 18:22> Chest: Other: localized area of tenderness to palpation left chest wall <BARBIE Maravilla Last Filed: 02/02/21 18:22> Resp: Effort & Inspection: normal respiratory effort and no respiratory distress <BARBIE Maravilla Last Filed: 02/02/21 18:22> Cardio: Rate: regular rate <BARBIE Maravilla - Last Filed: 02/02/21 18:22> Rhythm: regular rhythm <BARBIE Maravilla - Last Filed: 02/02/21 18:22> GI: Other: tender primarily in the epigastric region <BARBIE Maravilla - Last Filed: 02/02/21 18:22> Inspection: No distended <BARBIE Maravilla - Last Filed: 02/02/21 18:22> Palpation (GI): Soft to palpation <BARBIE Maravilla - Last Filed: 02/02/21 18:22> Neuro: General: patient oriented x3 <BARBIE Maravilla - Last Filed: 02/02/21 18:22> Cranial nerves: Yes CN's II-XII intact bilaterally, Yes Equal, round and reactive pupils present and Yes Bilaterally intact EOM present <BARBIE Maravilla - Last Filed: 02/02/21 18:22> Extrem: Other: no leg edema <BARBIE Maravilla - Last Filed: 02/02/21 18:22> Results Labs CBC and Chem 7: : 02/02/21 12:22 02/02/21 12:22 <BARBIE Maravilla - Last Filed: 02/02/21 18:22> Labs: Laboratory Results - last 24 hr 02/02/21 02/02/21 02/02/21 12:22 12:22 12:22 MCV 82.7 MCH 27.8 MCHC 33.6 RDW 13.0 Plt Count 250 MPV 9.7 Immature Gran % (Auto) 0.3 Neut % (Auto) 77.2 H Lymph % (Auto) 15.9 L [place] % (Auto) 6.1 Eos % (Auto) 0.2 Baso % (Auto) 0.3 Lymph # (Auto) 1.7 [place] # (Auto) 0.7 Eos # (Auto) 0.0 Baso # (Auto) 0.0 Abs Immat Gran (auto) 0.03 Absolute Neuts (auto) 8.39 H Absolute Nucleated RBC 0.000 Nucleated RBC % (auto) 0.0 D-Dimer < 200 Anion Gap 12 Estim Creat Clear Calc 145.9 Estimated GFR > 60 Random Glucose 90 Calcium 9.2 Total Bilirubin 0.5 Direct Bilirubin 0.2 AST 20 ALT 28 Alkaline Phosphatase 84 Troponin I High Sens Total Protein 8.1 H Albumin 4.5 Lipase 22 02/02/21 12:22 MCV MCH MCHC RDW Plt Count MPV Immature Gran % (Auto) Neut % (Auto) Lymph % (Auto) [place] % (Auto) Eos % (Auto) Baso % (Auto) Lymph # (Auto) [place] # (Auto) Eos # (Auto) Baso # (Auto) Abs Immat Gran (auto) Absolute Neuts (auto) Absolute Nucleated RBC Nucleated RBC % (auto) D-Dimer Anion Gap Estim Creat Clear Calc Estimated GFR Random Glucose Calcium Total Bilirubin Direct Bilirubin AST ALT Alkaline Phosphatase Troponin I High Sens < 3.5 Total Protein Albumin Lipase <BARBIE Maravilla - Last Filed: 02/02/21 18:22> Imaging Radiologist's Impressions: Impressions Chest X-Ray 02/02/21 12:11 IMPRESSION: Unremarkable examination. Abdomen/Pelvis CT 02/02/21 13:32 IMPRESSION: Colonic diverticulosis without significant associated inflammatory changes to suspect acute diverticulitis. The appendix is prominent but without significant surrounding inflammatory changes or wall thickening. Findings could potentially represent very mild early acute appendicitis and clinical correlation is needed for a definite diagnosis. Other differential consideration is an appendiceal mucocele. The report will be called to the ordering clinician by a [place] Radiology Physician Mastercam Programmer. <BARBIE Maravilla - Last Filed: 02/02/21 18:22> Assessment and Plan (1) Atypical chest pain: Status: Acute <BARBIE Maravilla - Last Filed: 02/02/21 18:22> This is a 35-year-old male with history of hypertension, hyperlipidemia, sleep apnea, asthma, morbid obesity who presents to the emergency department with abdominal pain left chest wall pain admitted to the surgical service for observation Atypical Chest pain Likely musculoskeletal Highly sensitive troponin was negative, D-dimer less than 200, EKG shows no acute ischemic changes, CXR negative Supportive care Constipation Bowel regimen Epigastric abdominal pain Has had similar pain in the past that was related to gas Simethicone p.r.n. Pepcid Hypertension Continue Norvasc, lisinopril Monitor blood pressure closely HLD Continue statin Thank you for allowing us to participate in the care of this patient. We will follow along with you Attending: dr arriaza <BARBIE Maravilla - Last Filed: 02/02/21 18:22>
[2021-02-02] MEDS: 0.9 % Sodium Chloride Flush 3 ML SYRINGE IVFLUSH ×2 (18:35→21:38)
[2021-02-02] MEDS: 0.9 % Sodium Chloride 1,000 ML 100 ML IVCONT (18:35)
[2021-02-02] MEDS: Morphine Sulfate 2 MG/ML CARTRIDGE IVPUSH (18:39)
[2021-02-02] MEDS: ondansetron HCL 4 MG/2 ML VIAL IVPUSH (18:39)
[2021-02-02] MEDS: Simethicone 80 MG TAB.CHEW PO (18:39)
--- NOTE | 2021-02-02 19:25 | PC.NURSE ---
REPORT TAKEN FROM SHABANA SAPP. FIRST CONTACT WITH PT. RESTING IN BED SKIN PWD RESPIRATIONS EVEN UNLABORED. REPORTS CONTINUED UPPER ABD PAIN AND INTERMITTENT HEADACHE. MEDICATED FOR PAIN BY PREVIOUS RN. AWAITING IMPROVEMENT IN SYMPTOMS AND BED ASSIGNMENT FOR ADMISSION.
[2021-02-02] MEDS: polyethylene glycoL 3350 17 GM POWD.PACK PO (20:04)
[2021-02-02] MEDS: Pantoprazole Sodium 40 MG/10 ML VIAL IVPUSH (20:05)
[2021-02-02] MEDS: Famotidine/PF 20 MG/2 ML VIAL IVPUSH (20:05)
[2021-02-02] MEDS: Docusate Sodium 100 MG CAPSULE PO (21:39)
--- NOTE | 2021-02-03 03:25 | PC.NURSE ---
assuming care of this patient, patient resting comfortably on stretcher sleeping, no facial grimace or guarding. awaiting bed assignment for admission.
[2021-02-03 05:37] LABS: COVID-19 Test Negative (Negative)
[2021-02-03] MEDS: 0.9 % Sodium Chloride 1,000 ML 100 ML IVCONT (05:59)
[2021-02-03 06:22] LABS: Hematocrit 43.4 % (42.0-52.0); Hemoglobin 14.5 g/dl (14.0-18.0); Mean Corpuscular HGB Conc 33.4 g/dl (31.0-36.0); Mean Corpuscular Hemoglobin 27.9 pg (27.0-33.0); Mean Corpuscular Volume 83.5 fL (80.0-98.0); Mean Platelet Volume 9.5 fL (9.4-12.4); Platelet Count 228 X10*3/uL (160-400); Red Cell Distribution Width 12.9 % (11.0-16.0); White Blood Count 9.9 X10*3/uL (4.8-10.8)
[2021-02-03 06:43] VITALS: BP 129/75; RESP 74; O2SAT 97
[2021-02-03 06:45] LABS: Alanine Aminotransferase 27 U/L (0-40); Alkaline Phosphatase 79 U/L (39-117); Anion Gap 12 (12-20); Aspartate Amino Transferase 17 U/L (5-37); Bilirubin Direct 0.3 mg/dL (0.0-0.5); Bilirubin Total 0.9 mg/dL (0.0-1.0); Blood Urea Nitrogen 11 mg/dL (9-16); Calcium 8.5 mg/dL (8.4-10.2); Carbon Dioxide 26 mmol/L (22-29); Chloride 106 mmol/L (96-108); Creatinine Clr Calc Pharmacy 144.4; Estimated Glomerular Filt Rate > 60; Glucose Random 95 mg/dL (60-115); Lipase 28 U/L (8-78); Potassium 4.2 mmol/L (3.3-5.1); Sodium 140 mmol/L (135-145); Total Protein 7.2 g/dL (6.5-8.0)
[2021-02-03 08:24] VITALS: BP 144/79; PULSE 82; RESP 18; TEMP 37; O2SAT 98
--- NOTE | 2021-02-03 08:28 | PC.NURSE ---
Pt reports feelsing better. no n/v. able to tolerate clear liquids. describing effects of dairy and greasy foods at home.
--- NOTE | 2021-02-03 08:34 | PC.NURSE ---
juan hurt in room.
--- NOTE | 2021-02-03 08:35 | P.PNGS_ITS ---
Subjective Subjective Date of Service: 02/03/21 Interval history: Says he feels much better Still with some epigastric pain but much improved He says he has more relaxed as well No events overnight Physical Exam Vital Signs: Vital Signs: Last Vital Signs Temp 98.6 F 02/03/21 08:24 Pulse 82 02/03/21 08:24 Resp 18 02/03/21 08:24 BP 144/79 H 02/03/21 08:24 Pulse Ox 98 02/03/21 08:24 Body Mass Index 48.5 Const: Other: Chemistry 02/02/21 02/03/21 12:22 06:01 Sodium 139 140 Potassium 3.9 4.2 Carbon Dioxide 27 26 BUN 10 11 Creatinine 0.94 0.95 Calcium 9.2 8.5 D Hematology 02/02/21 02/03/21 12:22 06:01 WBC 10.9 H 9.9 Hgb 15.1 14.5 Plt Count 250 228 General: comfortable and no acute distress Resp: Effort & Inspection: normal respiratory effort Cardio: Rate: regular rate GI: Other: Mild tenderness epigastric area Palpation (GI): Soft to palpation, not firm and no guarding Procedures Date of Service Date of Service: 02/03/21 Progress Note: A&P Assessment and plan (1) Epigastric pain: Status: Acute Assessment and Plan: Likely stress gastritis, peptic ulcer disease He admits to being very stressed at work More relaxed now Advance diet Likely DC home later on today Will prescribe PPI Labs okay Clinically not appendicitis Significant other at bedside as well Fall Risk Details Current Medications: Current Medications Amlodipine Besylate (Amlodipine Besylate 10 Mg Tablet) 10 mg PO DAILY [facility]; Protocol Atorvastatin Calcium (Atorvastatin Calcium 20 Mg Tablet) 20 mg PO DAILY [facility] Docusate Sodium (Docusate Sodium 100 Mg Capsule) 100 mg PO BEDTIME [facility] Last Admin: 02/02/21 21:39 Dose: 100 mg Documented by: Famotidine (Famotidine/Pf 20 Mg/2 Ml Vial) 20 mg IVPUSH DAILY [facility] Last Admin: 02/02/21 20:05 Dose: 20 mg Documented by: Sodium Chloride (Ns) 1,000 mls @ 100 mls/hr IVCONT .Q10H [facility] Last Admin: 02/03/21 05:59 Dose: 100 mls/hr Documented by: Lisinopril (Lisinopril 10 Mg Tablet) 10 mg PO DAILY [facility]; Protocol Morphine Sulfate (Morphine Sulfate 2 Mg/Ml Cartridge) 2 mg IVPUSH Q3H PRN; Protocol PRN Reason: Pain, Severe (Pain Scale 7-10) Last Admin: 02/02/21 18:39 Dose: 2 mg Documented by: Ondansetron HCl (Ondansetron Hcl 4 Mg/2 Ml Vial) 4 mg IVPUSH Q8H PRN PRN Reason: nausea Last Admin: 02/02/21 18:39 Dose: 4 mg Documented by: Pharmacy Consult (Consult Rx Perform Med Rec) 1 each MISCELLANE ONCE PRN PRN Reason: Consult order Polyethylene Glycol (Polyethylene Glycol 3350 17 Gm Powd.Pack) 17 gm PO DAILY [facility] Last Admin: 02/02/21 20:04 Dose: 17 gm Documented by: Simethicone (Simethicone 80 Mg Tab.Chew) 80 mg PO QIDWMHS PRN PRN Reason: gas/bloating Last Admin: 02/02/21 18:39 Dose: 80 mg Documented by: Sodium Chloride (0.9 % Sodium Chloride Flush 3 Ml Syringe) 3 ml IVFLUSH QSHIFT [facility] Last Admin: 02/03/21 08:27 Dose: Not Given Documented by: Time Spent With Patient Time: Total time spent is greater than 50% in coordination of care (as documented) at patient's floor/unit and/or counseling patient: Time with patient: 15 - 24 minutes Quality Stroke Does the patient have a stroke diagnosis?: No VTE Prior VTE?: No VTE Risk Level:: Surgical - low VTE Device Contraindication: Treatment Not Indicated VTE Drug Contraindication: Treatment Not Indicated
[2021-02-03 09:48] VITALS: BP 144/79; PULSE 82
[2021-02-03] MEDS: Omeprazole 20 MG CAPSULE.DR PO (09:48)
[2021-02-03] MEDS: amLODIPine Besylate 10 MG TABLET PO (09:48)
[2021-02-03] MEDS: Famotidine/PF 20 MG/2 ML VIAL IVPUSH (09:48)
[2021-02-03] MEDS: polyethylene glycoL 3350 17 GM POWD.PACK PO (09:48)
[2021-02-03 09:49] VITALS: BP 144/79; PULSE 82
[2021-02-03] MEDS: Atorvastatin Calcium 20 MG TABLET PO (09:49)
[2021-02-03] MEDS: lisinopriL 10 MG TABLET PO (09:49)
--- NOTE | 2021-02-03 10:12 | MHC.CM.PN ---
Met with patient and Melanie hanson, in regards to discharge planning. Patient lives with Melanie, ambulates independently and had no services prior to coming to the hospital. No services anticipated to be needed because patient is not homebound. PCP verified. Patient received Moderna vaccines on 07/07 and 08/04. HCP completed, signed and witnessed. Original given to patient. Copy placed in chart. Melanie will transport patient home when medically stable. Continue to monitor for d/c needs.
[2021-02-03 10:37] VITALS: BP 139/85; PULSE 77; RESP 19; O2SAT 95
--- NOTE | 2021-02-03 16:00 | P.PNIM_ITS ---
Subjective Subjective Date of Service: 02/03/21 <BARBIE Maravilla - Last Filed: 02/03/21 16:13> 02/25/21 <Luis Daniel Lemus MD - Last Filed: 02/25/21 16:16> Interval History: seen and examined this morning follow up for abdominal pain pain better tolerating diet. <BARBIE Maravilla - Last Filed: 02/03/21 16:13> Review of Systems Review of Systems: Yes all other systems are reviewed and are negative <BARBIE Maravilla - Last Filed: 02/03/21 16:13> Constitutional Constitutional: Denies chills and Denies fever(s) <BARBIE Maravilla - Last Filed: 02/03/21 16:13> Cardiovascular Cardiovascular: Denies chest pain <BARBIE Maravilla - Last Filed: 02/03/21 16:13> Respiratory Respiratory: Denies cough <BARBIE Maravilla - Last Filed: 02/03/21 16:13> Physical Exam Vital Signs: Vital Signs: Last Vital Signs Temp 98.6 F 02/03/21 08:24 Pulse 77 02/03/21 10:37 Resp 19 02/03/21 10:37 BP 139/85 02/03/21 10:37 Pulse Ox 95 02/03/21 10:37 Body Mass Index 48.5 <BARBIE Maravilla - Last Filed: 02/03/21 16:13> Const: General: comfortable, awake and Physically active <BARBIE Maravilla - Last Filed: 02/03/21 16:13> Nutritional Appearance: obese <BARBIE Maravilla - Last Filed: 02/03/21 16:13> Orientation/consciousness: patient oriented x3 <BARBIE Maravilla st Filed: 02/03/21 16:13> HENMT: Head: Yes normocephalic and Yes atraumatic <BARBIE Maravilla Last Filed: 02/03/21 16:13> Eyes: Sclerae: sclerae normal <BARBIE Maravilla - Last Filed: 02/03/21 16:13> Pupils: Equal, round and reactive pupils present <BARBIE Maravilla Last Filed: 02/03/21 16:13> Chest: Other: localized area of tenderness to palpation left chest wall <BARBIE Maravilla - Last Filed: 02/03/21 16:13> Resp: Effort & Inspection: normal respiratory effort and no respiratory distress <BARBIE Maravilla - Last Filed: 02/03/21 16:13> Cardio: Rate: regular rate <BARBIE Maravilla - Last Filed: 02/03/21 16:13> Rhythm: regular rhythm <BARBIE Maravilla - Last Filed: 02/03/21 16:13> GI: Other: tender primarily in the epigastric region <BARBIE Maravilla - Last Filed: 02/03/21 16:13> Inspection: No distended <BARBIE Maravilla - Last Filed: 02/03/21 16:13> Palpation (GI): Soft to palpation <BARBIE Maravilla - Last Filed: 02/03/21 16:13> Neuro: General: patient oriented x3 <BARBIE Maravilla - Last Filed: 02/03/21 16:13> Cranial nerves: Yes CN's II-XII intact bilaterally, Yes Equal, round and reactive pupils present and Yes Bilaterally intact EOM present <BARBIE Maravilla Last Filed: 02/03/21 16:13> Extrem: Other: no leg edema <BARBIE Maravilla - Last Filed: 02/03/21 16:13> Objective Data Active Medications Amlodipine Besylate (Amlodipine Besylate 10 Mg Tablet) 10 mg PO DAILY [facility]; Protocol Last Admin: 02/03/21 09:48 Dose: 10 mg Documented by: DERECK Atorvastatin Calcium (Atorvastatin Calcium 20 Mg Tablet) 20 mg PO DAILY [facility] Last Admin: 02/03/21 09:49 Dose: 20 mg Documented by: DERECK Docusate Sodium (Docusate Sodium 100 Mg Capsule) 100 mg PO BEDTIME [facility] Last Admin: 02/02/21 21:39 Dose: 100 mg Documented by: GEORGE Famotidine (Famotidine/Pf 20 Mg/2 Ml Vial) 20 mg IVPUSH DAILY [facility] Last Admin: 02/03/21 09:48 Dose: 20 mg Documented by: DERECK Sodium Chloride (Ns) 1,000 mls @ 100 mls/hr IVCONT .Q10H [facility] Last Admin: 02/03/21 05:59 Dose: 100 mls/hr Documented by: JESSENIAMAKymberly Lisinopril (Lisinopril 10 Mg Tablet) 10 mg PO DAILY [facility]; Protocol Last Admin: 02/03/21 09:49 Dose: 10 mg Documented by: DERECK Morphine Sulfate (Morphine Sulfate 2 Mg/Ml Cartridge) 2 mg IVPUSH Q3H PRN; Protocol PRN Reason: Pain, Severe (Pain Scale 7-10) Last Admin: 02/02/21 18:39 Dose: 2 mg Documented by: RAMOS Omeprazole (Omeprazole 20 Mg Capsule.Dr) 20 mg PO BID [facility] Last Admin: 02/03/21 09:48 Dose: 20 mg Documented by: DERECK Ondansetron HCl (Ondansetron Hcl 4 Mg/2 Ml Vial) 4 mg IVPUSH Q8H PRN PRN Reason: nausea Last Admin: 02/02/21 18:39 Dose: 4 mg Documented by: RAMOS Pharmacy Consult (Consult Rx Perform Med Rec) 1 each MISCELLANE ONCE PRN PRN Reason: Consult order Polyethylene Glycol (Polyethylene Glycol 3350 17 Gm Powd.Pack) 17 gm PO DAILY [facility] Last Admin: 02/03/21 09:48 Dose: 17 gm Documented by: DERECK Simethicone (Simethicone 80 Mg Tab.Chew) 80 mg PO QIDWMHS PRN PRN Reason: gas/bloating Last Admin: 02/02/21 18:39 Dose: 80 mg Documented by: RAMOS Sodium Chloride (0.9 % Sodium Chloride Flush 3 Ml Syringe) 3 ml IVFLUSH QSHIFT [facility] Last Admin: 02/03/21 08:27 Dose: Not Given Documented by: DERECK Non-Admin Reason: Med Not Available <BARBIE Maravilla - Last Filed: 02/03/21 16:13> Labs CBC & Chem 7: : 02/03/21 06:01 02/03/21 06:01 <BARBIE Maravilla - Last Filed: 02/03/21 16:13> Labs: Laboratory Results - last 24 hr 02/03/21 02/03/21 02/03/21 05:06 06:01 06:01 MCV 83.5 MCH 27.9 MCHC 33.4 RDW 12.9 Plt Count 228 MPV 9.5 Absolute Nucleated RBC 0.000 Nucleated RBC % (auto) 0.0 Anion Gap 12 Estim Creat Clear Calc 144.4 Estimated GFR > 60 Random Glucose 95 Calcium 8.5 D Total Bilirubin 0.9 Direct Bilirubin 0.3 AST 17 ALT 27 Alkaline Phosphatase 79 Total Protein 7.2 Albumin 4.0 Lipase 28 COVID-19 (NICOLASA) Negative COVID-19 Clin Com See Note <BARBIE Maravilla - Last Filed: 02/03/21 16:13> Assessment and Plan (1) Atypical chest pain: Status: Resolved <BARBIE Maravilla - Last Filed: 02/03/21 16:13> Assessment and Plan: This is a 35-year-old male with history of hypertension, hyperlipidemia, sleep apnea, asthma, morbid obesity who presents to the emergency department with abdominal pain left chest wall pain admitted to the surgical service for observation Atypical Chest pain Likely musculoskeletal Highly sensitive troponin was negative, D-dimer less than 200, EKG shows no acute ischemic changes, CXR negative Supportive care Constipation Bowel regimen Epigastric abdominal pain improving Has had similar pain in the past that was related to ? gastritis/PUD Hypertension BP controlled. Continue Norvasc, lisinopril Monitor blood pressure closely HLD Continue statin Attending: dr lemus <BARBIE Maravilla - Last Filed: 02/03/21 16:13> This is a 35-year-old male with history of hypertension, hyperlipidemia, sleep apnea, asthma, morbid obesity who presents to the emergency department with abdominal pain left chest wall pain admitted to the surgical service for observation Atypical Chest pain Likely musculoskeletal Highly sensitive troponin was negative, D-dimer less than 200, EKG shows no acute ischemic changes, CXR negative Supportive care Constipation Bowel regimen Epigastric abdominal pain improving Has had similar pain in the past that was related to ? gastritis/PUD Hypertension BP controlled. Continue Norvasc, lisinopril Monitor blood pressure closely HLD Continue statin Attending: dr lemus I saw patient and reviewed findings with midlevel and I agree with above. <Luis Daniel Mlapah, MD - Last Filed: 02/25/21 16:16> Quality Stroke Does the patient have a stroke diagnosis?: No <BARBIE Maravilla - Last Filed: 02/03/21 16:13> VTE Prior VTE?: No <BARBIE Maravilla - Last Filed: 02/03/21 16:13> VTE Risk Level:: Surgical - low <BARBIE Maravilla - Last Filed: 02/03/21 16:13> VTE Device Contraindication: Treatment Not Indicated <BARBIE Maravilla - Last Filed: 02/03/21 16:13> VTE Drug Contraindication: Treatment Not Indicated <BARBIE Maravilla - Last Filed: 02/03/21 16:13>
--- NOTE | 2021-02-07 13:46 | P.DS_ITS ---
DS: Providers Provider Date of Service: 02/03/21 Date of admission: 02/02/21 15:42 Primary care physician: Kevyn Clark MD Attending physician on admission: Chi Damon Consults: 02/02/21 15:44 Consult to Hospitalist Routine Consulting Provider: Hospitalist Reason For Exam: Hypertension, chest pain DS: Diagnosis Discharge Diagnosis (1) Atypical chest pain: Status: Acute DS: Summary Hospital Course Hospital Course: BRIEF HPI:Castro Taylor is a 35 year old male referred to me because of abdominal pain. He says he has been having this vague abdominal pain mostly epigastric area for 5-6 days now. He said this is been going to work regardless. He also says that he has been having chest pain the whole time. He says he was at work today in [facility] and he went to [employer] because of his chest pain and abdominal pain. He was therefore sent to the ER because of this. He also describes severe migraine for the past several days now. He describes being constipated chronically. He denies any nausea or vomiting. Work up in the ED included a CT scan demonstrated a very minimally distended appendix with no inflammatory changes. HOSPITAL COURSE: In view of his persistent pain, he was admitted to the surgical service for observation. Given the duration and location of his pain being 5-6 days with the minimal changes on CT scan, his clinical picture was not consistent with acute appendicitis. There was no other etiology for his pain on CT. He was kept on clear liquids and IVF. He was worked up in the ED for any cardiac pathology and this was ruled out. Hospitalist consult was obtained for further management and it was deemed the chest pain was likely musculoskeletal. The patient's pain improved. His WBC remained normal. It was thought to be secondary to gastritis, possibly stress induced or PUD. He was started on Omeprazole with improvement. He felt better and ready for discharge. He was discharged to home on 02/03/21 omeprazole with follow up with his PCP. Status at Discharge Functional status at discharge: independent ambulation Overall status at discharge: patient is back to baseline Time Spent with Patient Time attestation: Total time spent providing and/or coordinating discharge s ervices: Discharge coordination time: Less than 30 minutes Quality: Stroke Does the patient have a stroke diagnosis?: No Physical Exam Vital Signs: Vital Signs: Last Vital Signs Temp 98.6 F 02/03/21 08:24 Pulse 77 02/03/21 10:37 Resp 19 02/03/21 10:37 BP 139/85 02/03/21 10:37 Pulse Ox 95 02/03/21 10:37 Body Mass Index 48.5 Discharge Plan Discharge Patient Disposition: Home, Self-Care Discharge Diagnosis: Epigastric pain, likely Gastritis Referrals: Kevyn Clark MD [Primary Care Provider] - 1 Week Discharge Medications: New omeprazole magnesium [Prilosec OTC] 20 mg tablet,delayed release (DR/EC) 20 mg PO BID Qty: 60 RF: 0 Continued atorvastatin 20 mg tablet 1 tab PO DAILY RF: 0 amlodipine 10 mg tablet 1 tab PO DAILY RF: 0 lisinopril 10 mg tablet 1 tab PO DAILY RF: 0 Discharge Orders: Discharge Order (Routine); Ordered 02/03/21 Ordered By: Chi Damon Activity on Discharge: As tolerated Stand Alone Forms: Patient Portal Discharge page, Work/School Release Care Plan Goals: Control of gastric pain, likely gastritis Counseled on stress management Health Concerns: Weight control Stress management Plan of Treatment: Proton pump inhibitor Assessment: Much improved Discharge Date/Time: 02/03/21 19:40
== END 2021-02-03 19:40 | disposition home or self-care (01) ==
LOC: HO.ED 15:44 → HO.EDOVER 23:12 → HO.S3 02-03 19:15 → HO.EDOVER 02-03 19:36
PROVIDERS: Internal Medicine; Admitting Provider Surgery; Emergency Provider Emergency Medicine; PCP Internal Medicine; Visit Provider Surgery
DX: R07.89 Other chest pain (principal); K59.00 Constipation, unspecified; R10.13 Epigastric pain; I10 Essential (primary) hypertension; K57.30 Diverticulosis of large intestine without perforation or abscess without bleeding; E78.5 Hyperlipidemia, unspecified; E78.00 Pure hypercholesterolemia, unspecified; E66.01 Morbid (severe) obesity due to excess calories; R94.31 Abnormal electrocardiogram [ECG] [EKG]; Z68.42 Body mass index [BMI] 45.0-49.9, adult; Z20.822 Contact with and (suspected) exposure to COVID-19; Z91.09 Other allergy status, other than to drugs and biological substances; Z71.3 Dietary counseling and surveillance; Z79.899 Other long term (current) drug therapy
CPT/HCPCS: 36415; 71045; 74176; 80048; 80076; 83690; 84484; 85025; 85027; 85379; 87635; 93005; 96361; 96374; 96375; 96376; 99218; 99225; 99285; J2270; J2405

== ENCOUNTER 2021-09-04 08:36 | Emergency (ER) | payer OTHER, SELFPAY ==
[2021-09-04 08:41] VITALS: BP 161/103; PULSE 96; RESP 20; TEMP 36.7; O2SAT 96; BMI 48.5
--- NOTE | 2021-09-04 08:50 | ED_ITS ---
HPI - General Adult General Chief complaint: Back Pain/Injury Stated complaint: severe back pain, knee +groin pain Time Seen by Provider: 09/04/21 08:50 Source: patient Mode of arrival: ambulatory Limitations: no limitations History of Present Illness HPI narrative: Patient is a 35 year old male/ presenting to the emergency department today with back pain. Patient states that he was at work and lifted something heavy. Patient states that ever since then, he has had back pain on his right side that somewhat radiates into his groin. Patient denies any dizziness, lightheadedness, abdominal pain, nausea, vomiting, fever, chills, blurry vision, double vision, loss of vision, chest pain, difficulty breathing, shortness of breath, night sweats, pain with urination, increased urinary frequency, increased urinary urgency, blood in his urine or stool, syncope or a near syncopal episode, recent trauma or falls, bowel incontinence, bladder incontinence, bowel retention, bladder retention, or any other complaints at this time. Onset (ago): day(s) Location: back Radiation: other (groin) Severity: mild Severity scale (1-10): 3 Quality: dull Pain Consistency: constant Relieving factors: none Exacerbating factors: none Associated symptoms: denies other symptoms Treatments prior to arrival: none Related Data Home Medications Medication Instructions Recorded Confirmed amlodipine 10 mg tablet 1 tab PO DAILY 02/02/21 02/02/21 atorvastatin 20 mg tablet 1 tab PO DAILY 02/02/21 02/02/21 lisinopril 10 mg tablet 1 tab PO DAILY 02/02/21 02/02/21 Previous Rx's Medication Instructions Recorded omeprazole magnesium 20 mg 20 mg PO BID #60 tab 02/03/21 tablet,delayed release (Prilosec OTC) cyclobenzaprine 10 mg tablet 10 mg PO TID PRN 7 Days #21 tab 09/04/21 Allergies Allergy/AdvReac Type Severity Reaction Status Date / Time ENVIRONMENTAL Allergy Mild RUNNY Uncoded 07/16/20 22:21 STUFFY NOSE Review of Systems Constitutional: Constitutional: Reports no additional constitutional complaints, Denies chills, Denies fever(s) and Denies night sweats Eyes: Eyes: Reports no additional eye complaints, Denies blurry vision, Denies change in vision, Denies diplopia, Denies eye discharge, Denies loss of vision and Denies eye pain ENT: Denies dizziness Cardiovascular: Cardiovascular: Reports no additional cardiovascular complaints, Denies chest pain, Denies lightheadedness, Denies Loss of Consciousness and Denies dyspnea Respiratory: Respiratory: Reports no additional respiratory complaints and Denies dyspnea Gastrointestinal: Gastrointestinal: Reports no additional gastrointestinal complaints, Denies abdominal pain, Denies melena, Denies hematochezia, Denies change in bowel habits and Denies change in stool character Genitourinary: Genitourinary: Reports no additional male genitourinary complaints, Denies hematuria, Denies oliguria, Denies difficulty urinating, Denies dysuria, Denies urinary frequency, Denies urinary hesitancy, Denies urinary incontinence and Denies urinary urgency Musculoskeletal: Musculoskeletal: Reports no additional musculoskeletal complaints, Reports back pain, Denies numbness and Denies tingling Neurologic: Denies dizziness, Denies loss of vision, Denies numbness and Denies tingling Psychiatric: Psychiatric: Reports no additional psychiatric complaints Endocrine: Endocrine: Reports no additional endocrine complaints Hematologic/Lymphatic: Hematologic/Lymphatic: Reports no additional hematologic/lymphatic complaints Allergic/Immunologic: Allergic/Immunologic: Reports no additional allergic/immunologic complaints PMFSH Past Medical History Attestation statement: The following information was validated with the patient. Source: old records reviewed Medical History Asthma Chronic back pain Epigastric pain High cholesterol Hypertension Morbid obesity Sleep apnea Social History Social History Alcohol intake: never Patient Tobacco Use Status: Never used Tobacco Advance Directives: Yes Advance Directives on File: Yes Advance Directives Date on File: 02/03/21 service: No Current occupational status: employed Physical Exam ED Vital Signs: Vital Signs - 24 hr 09/04/21 08:41 Temperature 98.1 F Pulse Rate 96 Respiratory Rate 20 Blood Pressure 161/103 H Pulse Oximetry 96 BMI result Body Mass Index 48.5 Const General: cooperative, no acute distress, alert and awake Nutritional Appearance: well nourished Orientation/consciousness: patient oriented x3 Limitations: no limitations HENMT Head: Yes normal to inspection and Yes atraumatic Ears: hearing grossly normal bilaterally and external ears normal General nose exam: Normal external nose present, no nasal discharge noted and no epistaxis Face and sinus: Yes normal facial exam, No abrasion and No laceration Mouth: Normal oral and palatal mucosa present, no drooling and no muffled voice Eyes General: appearance normal, both eyes and all related structures Periorbital: periorbital findings normal Eyelids: Yes eyelids normal Conjunctivae: conjunctivae normal Pupils: Equal, round and reactive pupils present EOM: EOMs intact bilaterally Neck Neck: Yes normal visual inspection, Yes full ROM and Yes no lymphadenopathy Chest Chest palpation & inspection: normal inspection of the chest Resp Effort & Inspection: normal respiratory effort and able to speak in complete sentences Auscultation: clear to auscultation bilaterally Cardio Rate: regular rate Rhythm: regular rhythm GI Inspection: Yes normal to inspection General: Yes no CVA tenderness Back/Spine/Pelvis Back: no CVA tenderness Cervical Spine: normal cervical lordosis and cervical ROM normal Thoracic/Lumbar Spine: thoracic and lumbar spine normal to inspection and thoraco-lumbar ROM normal Pelvis: no pain with anterior-posterior compression Neuro General: patient oriented x3 and moves all extremities Cranial nerves: Yes Equal, round and reactive pupils present Cognition (Neuro): normal cognition Motor exam (neuro): 5/5 motor strength present throughout Sensory Exam: Normal double simultaneous stimulation for sensation Coordination: [id number] test normal Extrem General: Yes normal to inspection, Yes full ROM and Yes capillary refill normal Psych Appearance: grossly normal Mental Status: mental status grossly normal Affect: normal affect Attitude: cooperative Thought process: Normal thought process present Thought content: Normal thought content present Insight: Good insight present (Psych) Medical Decision Making [facility] Narrative Medical decision making narrative: Patient is a 35 year old male presenting to the emergency department today with back pain. Patient's physical exam was unremarkable. I explained my physical exam findings to the patient. I answered all questions asked by the patient. Patient received PO Flexeril and IM Toradol which he stated helped his symptoms significantly. I stressed the importance of the patient taking his medication as prescribed. I stressed the importance of the patient following up with his primary care provider and if the pain persists, an orthopedic provider. I stressed the importance of the patient returning to the emergency department immediately if his symptoms were to worsen or if he were to develop any dizziness, shortness of breath, difficulty breathing, chest pain, blurry vision, loss of vision, nausea, vomiting, abdominal pain, fever, chills, back pain, or any other complaints. Patient verbalized agreement and understanding with this treatment plan and discharge. Differential Diagnosis Differential Diagnosis: low back pain, acute low back pain, lumbar strain, lumbar pain Medical Records Medical records reviewed: Yes I reviewed the patient's medical records. Discharge Plan Discharge Clinical Impression: Strain of lumbar region Patient Disposition: Home, Self-Care Instructions: Acute Low Back Pain (ED) Additional Instructions: Follow up with your primary care provider. If symptoms do not improve in 3 days, follow up with an orthopedic provider. Return to the emergency department immediately if your symptoms worsen or if you develop any dizziness, shortness of breath, difficulty breathing, chest pain, blurry vision, loss of vision, nausea, vomiting, abdominal pain, fever, chills, back pain, or any other complaints. Prescriptions: New cyclobenzaprine 10 mg tablet 10 mg PO TID PRN (Reason: muscle spasm) 7 Days Qty: 21 0RF No Action atorvastatin 20 mg tablet 1 tab PO DAILY 0RF amlodipine 10 mg tablet 1 tab PO DAILY 0RF lisinopril 10 mg tablet 1 tab PO DAILY 0RF omeprazole magnesium [Prilosec OTC] 20 mg tablet,delayed release (DR/EC) 20 mg PO BID Qty: 60 0RF Referrals: [facility] [place] [facility] [place] [facility] [Provider Group] Kevyn Clark MD [Primary Care Provider] - Stand Alone Forms: Work/School Release Interventions: ED Discharge Assessment Last Done: 09/04/21 09:18 Discharge Date/Time: 09/04/21 09:19 Print Language: Ukrainian
[2021-09-04] MEDS: Ketorolac Tromethamine 30 MG/ML VIAL IM (09:11)
[2021-09-04] MEDS: Cyclobenzaprine HCl 10 MG TABLET PO (09:11)
== END 2021-09-04 09:19 | disposition home or self-care (01) ==
PROVIDERS: Emergency Provider Student in an Organized Health Care Education/Training Program; PCP Internal Medicine
DX: S39.012A Strain of muscle, fascia and tendon of lower back, initial encounter (principal); X50.0XXA Overexertion from strenuous movement or load, initial encounter; Y93.9 Activity, unspecified; Y92.9 Unspecified place or not applicable; Y99.9 Unspecified external cause status
CPT/HCPCS: 96372; 99283; 99284; J1885

== ENCOUNTER 2021-10-31 05:39 | Emergency (ER) | payer OTHER, SELFPAY ==
[2021-10-31 05:59] VITALS: BP 152/80; PULSE 96; RESP 24; TEMP 36.8; O2SAT 97; BMI 49.8
[2021-10-31 07:57] VITALS: BP 149/91; PULSE 72; RESP 14; TEMP 36.8; O2SAT 97
[2021-10-31] MEDS: Cyclobenzaprine HCl 10 MG TABLET PO (10:01)
[2021-10-31] MEDS: Lidocaine 4 % Patch ADH..PATCH 1 PATCH TRANSDERMA (10:01)
[2021-10-31 10:51] LABS: Appearance Urine CLEAR; Color Urine YELLOW; Glucose Urine UA NEG (NEG); Leukocyte Esterase Urine NEG (NEG); Nitrite Urine NEG (NEG); PH 6.5 (5.0-8.0); Urine Blood NEG (NEG); Urine Ketones NEG (NEG); Urine Protein NEG (NEG-TRACE)
--- NOTE | 2021-10-31 11:25 | ED_ITS ---
HPI - General Adult General Chief complaint: General Medical Stated complaint: back pain Time Seen by Provider: 10/31/21 09:41 Source: patient Mode of arrival: ambulatory History of Present Illness HPI narrative: 36-year-old male with a past medical history of asthma, chronic back pain, HLD, HTN, morbid obesity, sleep apnea, presenting to the ED complaining of acute on chronic left-sided low back pain radiating down LLE/groin. Reports intermittent left leg numbness. Denies known injury, trauma, fall, weakness, urinary incontinence/retention, fever, testicular pain/swelling, hematuria Onset (ago): day(s) Related Data Home Medications Medication Instructions Recorded Confirmed amlodipine 10 mg tablet 1 tab PO DAILY 02/02/21 02/02/21 atorvastatin 20 mg tablet 1 tab PO DAILY 02/02/21 02/02/21 lisinopril 10 mg tablet 1 tab PO DAILY 02/02/21 02/02/21 Previous Rx's Medication Instructions Recorded omeprazole magnesium 20 mg 20 mg PO BID #60 tabs 02/03/21 tablet,delayed release (Prilosec OTC) cyclobenzaprine 10 mg tablet 10 mg PO TID PRN muscle spasm 7 09/04/21 days #21 tabs acetaminophen 500 mg tablet 500 mg PO Q6H PRN fever or pain 10/31/21 (Tylenol Extra Strength) #14 tabs cyclobenzaprine 5 mg tablet 5 mg PO Q8H PRN pain (scale score 10/31/21 7-10) 5 days #14 tabs lidocaine 5 % topical patch 1 patch topical DAILY PRN pain #30 10/31/21 (Lidoderm) ea naproxen 500 mg tablet 500 mg PO BID PRN pain 10 days #20 10/31/21 tabs prednisone 20 mg tablet 40 mg PO DAILY 5 days #10 tabs 10/31/21 Allergies Allergy/AdvReac Type Severity Reaction Status Date / Time ENVIRONMENTAL Allergy Mild RUNNY Uncoded 07/16/20 22:21 STUFFY NOSE Review of Systems Review of Systems: Constitutional: No Fever, No Chills ENT/Mouth: No Ear Pain, No Nasal Congestion, No sore throat, No Rhinorrhea, No Swallowing Difficulty Cardiovascular: No Chest Pain, No SOB Respiratory: No Cough, No Sputum, No Wheezing Gastrointestinal: No Nausea, No Vomiting, No Diarrhea, No Constipation, No Abdominal pain Genitourinary: No Dysuria, No Urinary Frequency, No Hematuria, No Urinary Incontinence/retention, No Urgency, No Flank Pain Musculoskeletal: + joint pain, No Myalgias, No Joint Swelling Skin: No Skin Lesions, No rash Neuro: No Weakness, No Numbness, No Paresthesias Yes all other systems are reviewed and are negative Constitutional: Constitutional: Reports as per HPI Neurologic: Denies Sensory deficit (Neuro) [facility] Past Medical History Attestation statement: The following information was validated with the patient. Medical History Asthma Chronic back pain Epigastric pain High cholesterol Hypertension Morbid obesity Sleep apnea Social History Social History Alcohol intake: never Patient Tobacco Use Status: Never used Tobacco Advance Directives: Yes Advance Directives on File: Yes Advance Directives Date on File: 02/03/21 service: No Current occupational status: employed Physical Exam ED Vital Signs: Vital Signs - 24 hr 10/31/21 05:59 10/31/21 07:57 Temperature 98.2 F 98.3 F Pulse Rate 96 72 Respiratory Rate 24 H 14 Blood Pressure 152/80 H 149/91 H Pulse Oximetry 97 97 Oxygen Delivery Method Room Air Room Air BMI result Body Mass Index 49.8 Const General: cooperative, healthy appearing and no acute distress Orientation/consciousness: patient oriented x3 Limitations: no limitations HENMT Head: Yes normal to inspection and Yes atraumatic Ears: hearing grossly normal bilaterally General nose exam: Normal external nose present Face and sinus: Yes normal facial exam Eyes General: appearance normal, both eyes and all related structures EOM: EOMs intact bilaterally Neck Neck: Yes normal visual inspection and Yes no meningeal signs Resp Effort & Inspection: normal respiratory effort and no respiratory distress Cardio Rate: regular rate Heart sounds: S1 normal heart sound present and S2 normal heart sound present GI Inspection: Yes normal to inspection Palpation (GI): Soft to palpation, nontender, no guarding and not rigid General: Yes no CVA tenderness Back/Spine/Pelvis Other: No midline thoracic/lumbar spinous tenderness/step-off or deformity. + left- sided lower lumbar MSK tenderness to palpation/paraspinal tenderness Back: no CVA tenderness Skin Rashes: no rashes Wounds: no wounds Neuro Other: Strength intact throughout. No saddle anesthesia. Sensation intact to light touch. Neurovascular intact distally General: patient oriented x3, gait normal, tone normal, moves all extremities, no meningeal signs and no focal motor deficits Gait exam (Neuro): Normal gait present Motor exam (neuro): 5/5 motor strength present throughout Sensory Exam: No Sensory deficit (Neuro) Extrem General: Yes normal to inspection Course Course Course Narrative: -1125--UA negative. No hematuria > patient reports mild symptomatic improvement after p.o. medications given in the ED. requesting additional pain control. Will give 1 pill of oxycodone and plan for discharge home with PCP follow-up Results discussed with patient including worrisome signs and symptoms and strict return precautions, and when to return to the emergency department. They verbalized understanding and feel safe for discharge at this time. Medical Decision Making [facility] Narrative Medical decision making narrative: 36-year-old male with a past medical history of asthma, chronic back pain, HLD, HTN, morbid obesity, sleep apnea, presenting to the ED complaining of acute on chronic left-sided low back pain radiating down LLE/groin. On exam vital signs stable, NAD, nontoxic appearing, no midline spinous tenderness throughout, no red flag symptoms. Pain is reproducible on exam. Ambulating with steady gait. Concern for MSK pain/strain vs sciatica vs muclse spasming vs renal stone. Lower suspicion for pyelo/UTI due to chronicity of symptoms. Lower suspicion for epidural abscess/cauda equina or testicular torsion Plan: UA, Pain management, PCP follow-up Medical Records Medical records reviewed: Yes I reviewed the patient's medical records. Lab Data Lab results reviewed: Yes I reviewed the patient's lab results. Labs: Lab Results 10/31/21 Range/Units 10:41 Urine Color YELLOW Urine Appearance CLEAR Urine pH 6.5 (5.0-8.0) Ur Specific [place] 1.010 (1.005-1.025) Urine Protein NEG (NEG-TRACE) MG/DL Urine Glucose (UA) NEG (NEG) MG/DL Urine Ketones NEG (NEG) MG/DL Urine Blood NEG (NEG) Urine Nitrite NEG (NEG) Ur Leukocyte Esterase NEG (NEG) Discharge Plan Discharge Clinical Impression: Chronic back pain Patient Disposition: Home, Self-Care Instructions: Acute Low Back Pain (ED) Additional Instructions: Your pain is likely musculoskeletal Flexeril is a muscle relaxer, take at night as it makes you drowsy, do not drive, drink alcohol, or operate machinery while taking it Naproxen as an anti-inflammatory / pain medication, take with food Lidoderm patches are numbing patches, apply to painful area Prednisone as a steroid which will help with inflammation and pain If symptoms persist or worsen, pain becomes unbearable, you developed urinary retention or incontinence, or weakness return to the ED Prescriptions: New prednisone 20 mg tablet 40 mg PO DAILY 5 Days Qty: 10 0RF acetaminophen [Tylenol Extra Strength] 500 mg tablet 500 mg PO Q6H PRN (Reason: fever or pain) Qty: 14 0RF lidocaine [Lidoderm] 5 % adhesive patch,medicated 1 patch topical DAILY MDD remove after 12 hours PRN (Reason: pain) Qty: 30 0RF Rx Instructions: leave on most painful area for up to 12 hrs naproxen 500 mg tablet 500 mg PO BID PRN (Reason: pain) 10 Days Qty: 20 0RF cyclobenzaprine 5 mg tablet 5 mg PO Q8H PRN (Reason: pain (scale score 7-10)) 5 Days Qty: 14 0RF No Action atorvastatin 20 mg tablet 1 tab PO DAILY amlodipine 10 mg tablet 1 tab PO DAILY lisinopril 10 mg tablet 1 tab PO DAILY omeprazole magnesium [Prilosec OTC] 20 mg tablet,delayed release (DR/EC) 20 mg PO BID Qty: 60 0RF cyclobenzaprine 10 mg tablet 10 mg PO TID PRN (Reason: muscle spasm) 7 Days Qty: 21 0RF Referrals: Kevyn Clark MD [Primary Care Provider] - 1 week Stand Alone Forms: Work/School Release Interventions: ED Discharge Assessment Last Done: 10/31/21 11:50 Discharge Date/Time: 10/31/21 11:51
[2021-10-31] MEDS: oxyCODONE HCl Immed Release 5 MG TABLET PO (11:48)
== END 2021-10-31 11:51 | disposition home or self-care (01) ==
PROVIDERS: Physician Assistant; Emergency Provider Emergency Medicine Emergency Medical Services; PCP Internal Medicine
DX: G89.29 Other chronic pain (principal); M54.50 Low back pain, unspecified; I10 Essential (primary) hypertension; E78.5 Hyperlipidemia, unspecified; Z79.02 Long term (current) use of antithrombotics/antiplatelets; Z79.899 Other long term (current) drug therapy; E66.01 Morbid (severe) obesity due to excess calories; Z68.42 Body mass index [BMI] 45.0-49.9, adult
CPT/HCPCS: 81003; 99283; 99284

== ENCOUNTER 2021-11-24 15:29 | Outpatient (REF) | payer OTHER, SELFPAY ==
[2021-11-24 15:55] LABS: Binax Internal Control QC Valid; Binax Now Covid-19 Ag Negative (Negative)
== END 2021-11-24 15:30 | disposition home or self-care (01) ==
LOC: HO.HMGCLDS 15:29
DX: Z20.822 Contact with and (suspected) exposure to COVID-19 (principal); J02.9 Acute pharyngitis, unspecified
CPT/HCPCS: 87811; C9803

== ENCOUNTER 2021-12-13 08:35 | Emergency (ER) | payer OTHER, SELFPAY ==
--- NOTE | ~2021-12-13 | CT_ITS ---
EXAMINATION: CT LUMBAR SPINE WITHOUT CONTRAST CLINICAL INFORMATION: Low back pain radiating to left lower extremity. COMPARISON: 08/09/2020. MRI scan of the lumbar spine [place] [facility] TECHNIQUE: A noncontrast axial CT scan of the lumbar spine was obtained and 1.5 mm and 2.0 mm axial reconstructions were reviewed along with sagittal and coronal MPRs. . This CT examination was performed using dose optimization techniques as appropriate, variously including the following: *Automated exposure control *Adjustment of mA and/or kV according to patient size (this includes techniques or standardized protocols for targeted exams where dose is matched to indication/reason for exam; i.e. extremities or head) *Use of iterative reconstruction technique DLP; 908 mGy-cm FINDINGS: VERTEBRAL BODIES AND PARASPINAL STRUCTURES: There is anatomic alignment of the vertebral bodies. There is narrowing of intervertebral disc height at L3-L4, L4-L5 and L5-S1. Vertebral body heights are maintained and no fractures are demonstrated. There are mild degenerative endplate contour changes at L4-L5 and L5-S1. The visualized retroperitoneal and pelvic structures are unremarkable. SPINAL LEVELS: T12-L1: The facet joints appear normal bilaterally. Disc contour is normal. There is no central stenosis or foraminal narrowing. L1-L2: The facet joints appear normal bilaterally. Disc contour is normal. There is no central stenosis or foraminal narrowing. L2-L3: The facet joints appear normal bilaterally. Disc contour is normal. There is no central stenosis or foraminal narrowing. L3-L4: There is mild bilateral facet arthropathy. There is a posterior disc protrusion which is focally most prominent centrally and to the left of midline with an annular calcification. There is some distortion of the ventral thecal sac, and there is mild central stenosis. There is no foraminal nerve root impingement. L4-L5: There is moderate bilateral facet arthropathy. There is a posterior disc protrusion with annular calcifications, which redemonstrates extrusion cephalad and caudad to the intervertebral disc level with compression of the thecal sac, and there is moderate central stenosis. There is also narrowing of the left subarticular recess. These findings were present on the prior study. There are bilateral inferior foraminal disc protrusions, extending far laterally on the left. There is moderate central stenosis. L5-S1: There is mild bilateral facet arthropathy. There is a shallow posterior disc protrusion with annular calcifications without significant mass effect on the thecal sac. The neural foramina are patent bilaterally. CT/CT lumbar spine wo IV con IMPRESSION: 1. The study redemonstrates a posterior disc protrusion/extrusion at L4-L5 with compression of the thecal sac and narrowing of the left subarticular recess. There is moderate central stenosis. These findings were present on the prior study. 2. At L3-L4 there is a posterior disc protrusion with mild distortion of the ventral thecal sac and with mild central stenosis. The neural foramina are patent. 3. At L5-S1 there is a shallow posterior disc protrusion with annular calcifications. There is no central stenosis or foraminal nerve root impingement.
[2021-12-13 09:45] VITALS: BP 149/92; PULSE 72; RESP 18; TEMP 36.4; O2SAT 99; BMI 46.8
--- NOTE | 2021-12-13 10:13 | ED.BACK ---
HPI - Back Pain/Injury General Chief Complaint: Back Pain/Injury Stated Complaint: sever back pain. Time Seen by Provider: 12/13/21 10:12 Source: patient Mode of arrival: ambulatory History of Present Illness HPI Narrative: 36-year-old male with a past medical history of asthma, chronic back pain, HLD, HTN, morbid obesity, sleep apnea, presenting to the ED complaining of acute on chronic left-sided low back pain radiating down bilateral LE > LLE. Denies known injury, trauma, or fall. Has been seen in the ED multiple times for similar complaints with out improvement in symptoms. Reports associated numbness. Denies abdominal pain, hematuria/dysuria, flank pain, weakness, urine incontinence/retention, fever, history of IVDA or recent surgery MD elicited complaint: back pain Pertinent past history: prior back pain Related Data Home Medications Medication Instructions Recorded Confirmed amlodipine 10 mg tablet 1 tab PO DAILY 02/02/21 11/24/21 atorvastatin 20 mg tablet 1 tab PO DAILY 02/02/21 11/24/21 lisinopril 10 mg tablet 1 tab PO DAILY 02/02/21 11/24/21 Previous Rx's Medication Instructions Recorded omeprazole magnesium 20 mg 20 mg PO BID #60 tabs 02/03/21 tablet,delayed release (Prilosec OTC) cyclobenzaprine 10 mg tablet 10 mg PO TID PRN muscle spasm 7 09/04/21 days #21 tabs acetaminophen 500 mg tablet 500 mg PO Q6H PRN fever or pain 10/31/21 (Tylenol Extra Strength) #14 tabs cyclobenzaprine 5 mg tablet 5 mg PO Q8H PRN pain (scale score 10/31/21 7-10) 5 days #14 tabs lidocaine 5 % topical patch 1 patch topical DAILY PRN pain #30 10/31/21 (Lidoderm) ea naproxen 500 mg tablet 500 mg PO BID PRN pain 10 days #20 10/31/21 tabs prednisone 20 mg tablet 40 mg PO DAILY 5 days #10 tabs 10/31/21 amoxicillin 500 mg capsule 1,000 mg PO DAILY 10 days #20 caps 11/24/21 acetaminophen 500 mg tablet 500 mg PO Q6H PRN fever or pain 12/13/21 (Tylenol Extra Strength) #14 tabs cyclobenzaprine 10 mg tablet 10 mg PO TID PRN muscle spasm #14 12/13/21 tabs lidocaine 5 % topical patch 1 patch topical DAILY PRN pain #30 12/13/21 (Lidoderm) ea naproxen 500 mg tablet 500 mg PO BID PRN pain 10 days #20 12/13/21 tabs prednisone 10 mg tablet 10 mg PO DAILY #20 tabs 12/13/21 tramadol 50 mg tablet 50 mg PO Q8H PRN pain, severe #9 12/13/21 tabs Allergies Allergy/AdvReac Type Severity Reaction Status Date / Time ENVIRONMENTAL Allergy Mild RUNNY Uncoded 11/24/21 15:48 STUFFY NOSE Review of Systems Review of Systems: Constitutional: No Fever, No Chills ENT/Mouth: No Ear Pain, No Nasal Congestion, No sore throat, No Rhinorrhea, No Swallowing Difficulty Cardiovascular: No Chest Pain, No SOB Respiratory: No Cough, No Sputum, No Wheezing Gastrointestinal: No Nausea, No Vomiting, No Diarrhea, No Constipation, No Abdominal pain Genitourinary: No Dysuria, No Urinary Frequency, No Hematuria, No Urinary Incontinence/retention, No Urgency, No Flank Pain Musculoskeletal: + joint pain, No Myalgias, No Joint Swelling Skin: No Skin Lesions, No rash Neuro: No Weakness, No Numbness, + Paresthesias Yes all other systems are reviewed and are negative Constitutional: Constitutional: Reports as per HPI Neurologic: Denies Sensory deficit (Neuro) [facility] Past Medical History Attestation statement: The following information was validated with the patient. Medical History Asthma Chronic back pain Epigastric pain High cholesterol Hypertension Morbid obesity Pharyngitis Sleep apnea Social History Social History Alcohol intake: never Patient Tobacco Use Status: Never used Tobacco Advance Directives: Yes Advance Directives on File: Yes Advance Directives Date on File: 02/03/21 service: No Current occupational status: employed Physical Exam Vital Signs: Vital Signs: Last Vital Signs Temp 97.5 F 12/13/21 09:45 Pulse 72 12/13/21 09:45 Resp 18 12/13/21 09:45 BP 149/92 H 12/13/21 09:45 Pulse Ox 99 12/13/21 09:45 O2 Del Method 12/13/21 09:45 BMI result Body Mass Index 46.8 Const: General: cooperative, healthy appearing and no acute distress Orientation/consciousness: patient oriented x3 Limitations: no limitations HEENT: Head: Yes normal to inspection and Yes atraumatic Ears: hearing grossly normal bilaterally General nose exam: Normal external nose present Face and sinus: Yes normal facial exam Eyes: General: appearance normal, both eyes and all related structures EOM: EOMs intact bilaterally Neck: Neck: Yes normal visual inspection and Yes no meningeal signs Resp: Effort & Inspection: normal respiratory effort and no respiratory distress Cardio: Rate: regular rate Heart sounds: S1 normal heart sound present and S2 normal heart sound present GI: Inspection: Yes normal to inspection Palpation (GI): Soft to palpation, nontender, no guarding and not rigid Rectal Exam - Male: Yes normal sphincter tone : General: Yes no CVA tenderness Back/Spine/Pelvis: Other: No midline thoracic/lumbar spinous tenderness/step-off or deformity. +bilateral lower lumbar paraspinal/MSK tenderness > left Back: no CVA tenderness Skin: Rashes: no rashes Wounds: no wounds Neuro: Other: Strength intact throughout. No saddle anesthesia. Sensation intact to light touch. Neurovascular intact distally General: patient oriented x3, tone normal, moves all extremities, no meningeal signs and no focal motor deficits Gait exam (Neuro): Normal gait present Motor exam (neuro): 5/5 motor strength present throughout Sensory Exam: No Sensory deficit (Neuro) Extrem: General: Yes normal to inspection Course Course Course Narrative: CT lumbar spine wo IV con IMPRESSION: 1. The study redemonstrates a posterior disc protrusion/extrusion at L4-L5 with compression of the thecal sac and narrowing of the left subarticular recess. There is moderate central stenosis. These findings were present on the prior study. ? 2. At L3-L4 there is a posterior disc protrusion with mild distortion of the ventral thecal sac and with mild central stenosis. The neural foramina are patent. ? 3. At L5-S1 there is a shallow posterior disc protrusion with annular calcifications. There is no central stenosis or foraminal nerve root impingement. > On rectal exam patient with good tone. Full sensation intact to light touch perianally > Low suspicion for new or worsening compression. No need for emergent MRI at this time, spoke with patient and at length about concerning signs and sx & importance of timely/urgent follow-up with neurosurgery/likely needed repeat MRI. They verbalized understanding and feels safe for discharge home Case d/w Dr. Sanchez who is in agreement with plan [id number]--spoke with Dr. Montemayor office, faxed over CT results and ED documentation, they will get patient in next week MDM - Back Pain/Injury MDM Narrative Medical decision making narrative: 36-year-old male with a past medical history of asthma, chronic back pain, HLD, HTN, morbid obesity, sleep apnea, presenting to the ED complaining of acute on chronic left-sided low back pain radiating down bilateral LE > LLE. On exam vital signs stable, NAD, nontoxic appearing, no midline spinous tenderness or red flag symptoms. No CVA tenderness. Concern for acute on chronic back pain/MSK pain vs sciatica vs herniated disc vs muscle spasming. Low suspicion for epidural abscess, cord compression, cauda equina or pyelo/UTI Plan: CT per patient request, symptomatic tx, neurosurgical f/u & PT referral Differential Diagnosis Differential diagnosis: Likely lumbar radiculopathy, sciatica and strain of lumbar region Medical Records Attestation: I reviewed the patient's medical records. Lab Data Attestation: I reviewed the patient's lab results. Discharge Plan Discharge Clinical Impression: Protrusion of lumbar intervertebral disc Patient Disposition: Home, Self-Care Instructions: Lumbar Disc Herniation (ED) Additional Instructions: You have herniated discs in your lower back. This is causing compression on important structures. You do not have any alarm signs at this time, however you need to have very close follow-up with neurosurgery/your primary care doctor AVOID ANY HEAVY LIFTING, EXCESSIVE BENDING, CONTACT SPORTS, ETC. Prednisone as a steroid which will help with swelling Tramadol as an opiate pain medication, take with food. Do not drive, drink alcohol, or operate machinery while taking. Flexeril is a muscle relaxer, take at night as it makes you drowsy, do not drive, drink alcohol, or operate machinery while taking it Naproxen as an anti-inflammatory / pain medication, take with food Lidoderm patches are numbing patches, apply to painful area In addition take Tylenol at home If symptoms persist or worsen, pain becomes unbearable, you developed urinary retention or incontinence, weakness please return to the ED Prescriptions: New cyclobenzaprine 10 mg tablet 10 mg PO TID PRN (Reason: muscle spasm) Qty: 14 0RF prednisone 10 mg tablet 10 mg PO DAILY Qty: 20 0RF Taper: Prednisone 40 mg daily for 3 Days and 0 Hour 30 mg daily for 3 Days and 0 Hour 20 mg daily for 3 Days and 0 Hour 10 mg daily for 3 Days and 0 Hour Rx Instructions: prednisone 10 mg: take 4 tablets (40 mg) for 2 days; 3 tablets (30 mg) for 2 days; 2 (20mg) tablets for 2 days and then 1 (10mg) tablet for 2 days tramadol 50 mg tablet 50 mg PO Q8H PRN (Reason: pain, severe) Qty: 9 0RF acetaminophen [Tylenol Extra Strength] 500 mg tablet 500 mg PO Q6H PRN (Reason: fever or pain) Qty: 14 0RF lidocaine [Lidoderm] 5 % adhesive patch,medicated 1 patch topical DAILY MDD remove after 12 hours PRN (Reason: pain) Qty: 30 0RF Rx Instructions: leave on most painful area for up to 12 hrs naproxen 500 mg tablet 500 mg PO BID PRN (Reason: pain) 10 Days Qty: 20 0RF No Action prednisone 20 mg tablet 40 mg PO DAILY 5 Days Qty: 10 0RF acetaminophen [Tylenol Extra Strength] 500 mg tablet 500 mg PO Q6H PRN (Reason: fever or pain) Qty: 14 0RF lidocaine [Lidoderm] 5 % adhesive patch,medicated 1 patch topical DAILY MDD remove after 12 hours PRN (Reason: pain) Qty: 30 0RF Rx Instructions: leave on most painful area for up to 12 hrs naproxen 500 mg tablet 500 mg PO BID PRN (Reason: pain) 10 Days Qty: 20 0RF cyclobenzaprine 5 mg tablet 5 mg PO Q8H PRN (Reason: pain (scale score 7-10)) 5 Days Qty: 14 0RF atorvastatin 20 mg tablet 1 tab PO DAILY amlodipine 10 mg tablet 1 tab PO DAILY lisinopril 10 mg tablet 1 tab PO DAILY omeprazole magnesium [Prilosec OTC] 20 mg tablet,delayed release (DR/EC) 20 mg PO BID Qty: 60 0RF cyclobenzaprine 10 mg tablet 10 mg PO TID PRN (Reason: muscle spasm) 7 Days Qty: 21 0RF amoxicillin 500 mg capsule 1,000 mg PO DAILY 10 Days Qty: 20 0RF Referrals: Amelia Hurtado MD [Physician] - (Call to make an appointment batool) Stand Alone Forms: Work/School Release Interventions: ED Discharge Assessment Last Done: 12/13/21 13:33 Discharge Date/Time: 12/13/21 13:34
[2021-12-13] MEDS: Lidocaine 4 % Patch ADH..PATCH 1 PATCH TRANSDERMA (11:11)
[2021-12-13] MEDS: Ketorolac Tromethamine 30 MG/ML VIAL IM (11:12)
[2021-12-13] MEDS: Cyclobenzaprine HCl 10 MG TABLET PO (11:12)
== END 2021-12-13 13:34 | disposition home or self-care (01) ==
PROVIDERS: Emergency Provider Emergency Medicine; PCP Internal Medicine
DX: M54.50 Low back pain, unspecified (principal); I10 Essential (primary) hypertension; Z79.899 Other long term (current) drug therapy
CPT/HCPCS: 72131; 96372; 99283; 99284; J1885

== ENCOUNTER 2025-01-18 09:50 | Emergency (ER) | payer OTHER, SELFPAY ==
--- NOTE | ~2025-01-18 | CT_ITS ---
EXAMINATION: CT ABDOMEN AND PELVIS WITH CONTRAST CLINICAL INFORMATION: Abdominal pain, constipation, concerning for small bowel obstruction. COMPARISON: CT 02/02/2021 TECHNIQUE: Multidetector volumetric images were obtained from the superior aspect of the liver through the pubic symphysis following administration 85 mL of Omnipaque 350 intravenous contrast. Sagittal and coronal reformatted images were obtained on the technologist's workstation. Oral contrast: Yes This CT examination was performed using dose optimization techniques as appropriate, variously including the following: *Automated exposure control *Adjustment of mA and/or kV according to patient size (this includes techniques or standardized protocols for targeted exams where dose is matched to indication/reason for exam; i.e. extremities or head) *Use of iterative reconstruction technique FINDINGS: LUNG BASES: No focal consolidation. No effusion. LIVER, GALLBLADDER, AND BILIARY TREE: No focal lesions. No biliary duct dilatation. The gallbladder is unremarkable with no evidence of radiopaque gallstones, gallbladder wall thickening, or obvious pericholecystic inflammatory changes. PANCREAS: Unremarkable. No inflammatory changes. SPLEEN: Unremarkable. ADRENAL GLANDS: Unremarkable. KIDNEYS AND URETERS: Symmetric renal enhancement. No suspicious lesions. No hydronephrosis. No renal or ureteral calculi. No significant perinephric stranding. BLADDER: Partially distended, within normal limits. GASTROINTESTINAL TRACT: Oral contrast is seen in the bowel loops, extending through the large colon to the rectum. No evidence of bowel obstruction. Scattered colonic diverticuli. No inflammatory changes identified to suggest diverticulitis. Moderate volume stool in the colon. Appendix appears unremarkable. Stomach is nondistended. No free fluid. No free air. ABDOMINAL WALL: Small fat-containing umbilical hernia. LYMPH NODES: No pathologically enlarged lymph nodes. VASCULAR: Normal caliber aorta. PELVIC VISCERA: Unremarkable. OSSEOUS STRUCTURES: No acute or suspicious osseous findings. Scattered mild disc degenerative changes. CT/CT abdomen pelvis w IV con IMPRESSION: * Colonic diverticulosis without evidence of diverticulitis. Moderate volume stool in the large colon. No findings to suggest bowel obstruction.. Follow-up imaging as clinically indicated. * No acute intra-abdominal findings otherwise identified. Fleischner guidelines were followed. Electronically signed by: Mauricio Garcia MD 01/18/2025 02:11 PM EDT
--- NOTE | ~2025-01-18 | XR_ITS ---
EXAMINATION: XR ABDOMEN 1 VIEW (KUB) HISTORY: pain, constipation COMPARISON: There are no prior studies available for comparison. FINDINGS: Four supine views of the abdomen are submitted. The bowel gas pattern is unremarkable, without evidence of mechanical obstruction. There is a moderate to large amount of stool throughout the colon. No abnormal calcifications are identified. There are no abnormal soft tissue masses. The bones are intact. XR/XR KUB IMPRESSION: Moderate to large amount of stool throughout the colon. Electronically signed by: Andrei Barros MD 01/18/2025 10:40 AM EDT
[2025-01-18 10:16] VITALS: BP 163/94; PULSE 81; RESP 16; TEMP 37; O2SAT 97; BMI 49.1
--- NOTE | 2025-01-18 10:16 | ED.GENADULT ---
HPI - General Adult General Chief complaint: Abdominal Pain Stated complaint: stomach pain, vomitting Time Seen by Provider: 01/18/25 10:32 Source: patient and family (patient's ) Mode of arrival: ambulatory Limitations: no limitations History of Present Illness ED Provider: Stephy Guillermo PA-C HPI narrative: Patient is a 39 year old assigned male at with a history of high cholesterol, asthma, hypertension, and chronic back pain presenting to the emergency department today with epigastric pain, constipation, and vomiting. Patient states that 8 months ago he was on Wegovy and it was stopped. Patient states that ever since he has had ongoing abdominal pain / issues. Patient states that he saw his PCP for this recently and was told he was constipation and started on a bowel regimen that has not helped. Patient states it has gotten to the point where when he eats, he vomits shortly after. Patient denies any other complaints at this time. Related Data Home Medications ?Medication ?Instructions ?Recorded ?Confirmed amlodipine 10 mg tablet 1 tab PO DAILY 02/02/21 11/24/21 atorvastatin 20 mg tablet 1 tab PO DAILY 02/02/21 11/24/21 lisinopril 10 mg tablet 1 tab PO DAILY 02/02/21 11/24/21 Previous Rx's ?Medication ?Instructions ?Recorded omeprazole magnesium 20 mg 20 mg PO BID #60 tabs 02/03/21 tablet,delayed release (Prilosec OTC) cyclobenzaprine 10 mg tablet 10 mg PO TID PRN muscle spasm 7 09/04/21 days #21 tabs acetaminophen 500 mg tablet 500 mg PO Q6H PRN fever or pain 10/31/21 (Tylenol Extra Strength) #14 tabs cyclobenzaprine 5 mg tablet 5 mg PO Q8H PRN pain (scale score 10/31/21 7-10) 5 days #14 tabs lidocaine 5 % topical patch 1 patch topical DAILY PRN pain #30 10/31/21 (Lidoderm) ea naproxen 500 mg tablet 500 mg PO BID PRN pain 10 days #20 10/31/21 tabs prednisone 20 mg tablet 40 mg (2 x 20 mg) PO DAILY 5 days 10/31/21 #10 tabs amoxicillin 500 mg capsule 1,000 mg (2 x 500 mg) PO DAILY 10 11/24/21 days #20 caps acetaminophen 500 mg tablet 500 mg PO Q6H PRN fever or pain 12/13/21 (Tylenol Extra Strength) #14 tabs cyclobenzaprine 10 mg tablet 10 mg PO TID PRN muscle spasm #14 12/13/21 tabs lidocaine 5 % topical patch 1 patch topical DAILY PRN pain #30 12/13/21 (Lidoderm) ea naproxen 500 mg tablet 500 mg PO BID PRN pain 10 days #20 12/13/21 tabs prednisone 10 mg tablet 10 mg PO DAILY #20 tabs 12/13/21 tramadol 50 mg tablet 50 mg PO Q8H PRN pain, severe #9 12/13/21 tabs peg 3350-electrolytes 236 25 ml PO Q1M #4,000 mL 01/18/25 gram-22.74 gram-6.74 gram-5.86 gram solution (Golytely) Allergies Allergy/AdvReac Type Severity Reaction Status Date / Time ENVIRONMENTAL Allergy Mild RUNNY Uncoded 01/18/25 10:21 STUFFY NOSE Review of Systems Constitutional: Constitutional: Reports as per HPI Eyes: Eyes: Reports as per HPI ENT: Reports as per HPI Cardiovascular: Cardiovascular: Reports as per HPI Respiratory: Respiratory: Reports as per HPI Gastrointestinal: Gastrointestinal: Reports as per HPI Genitourinary: Genitourinary: Reports as per HPI Musculoskeletal: Musculoskeletal: Reports as per HPI Integumentary/Breasts: Skin/Breast: Reports as per HPI Neurologic: Reports as per HPI Psychiatric: Psychiatric: Reports as per HPI Endocrine: Endocrine: Reports as per HPI Hematologic/Lymphatic: Hematologic/Lymphatic: Reports as per HPI Allergic/Immunologic: Allergic/Immunologic: Reports as per HPI [facility] Past Medical History Attestation statement: The following information was validated with the patient. (all information validated with the patient's ) Source: old records reviewed, obtained from family (patient's provided additional history and confirmed the history provided by the patient. ) and nursing notes reviewed Medical History Pharyngitis Chronic back pain Epigastric pain Sleep apnea Morbid obesity High cholesterol Hypertension Asthma Social History Social History Alcohol intake: never Patient Tobacco Use Status: Never used Tobacco Advance Directives: Yes Advance Directives on File: Yes Advance Directives Date on File: 02/03/21 service: No Current occupational status: employed Physical Exam ED Vital Signs: Vital Signs - 24 hr 01/18/25 10:16 01/18/25 13:55 01/18/25 14:54 Temperature 98.6 F 98.3 F 98.3 F Pulse Rate 81 73 73 Respiratory Rate 16 16 16 Blood Pressure 163/94 H 134/79 134/79 Pulse Oximetry 97 97 97 Oxygen Delivery Method Room Air Room Air Room Air BMI result Body Mass Index 49.1 Const General: cooperative, no acute distress, alert and awake Nutritional Appearance: well nourished Orientation/consciousness: patient oriented x3 HENMT Head: Yes normal to inspection and Yes atraumatic Ears: hearing grossly normal bilaterally and external ears normal General nose exam: Normal external nose present, no nasal discharge noted and no epistaxis Face and sinus: Yes normal facial exam, No abrasion and No laceration Mouth: Normal oral and palatal mucosa present, no drooling and no muffled voice Eyes General: appearance normal, both eyes and all related structures Periorbital: periorbital findings normal Eyelids: Yes eyelids normal Conjunctivae: conjunctivae normal Pupils: Equal, round and reactive pupils present EOM: EOMs intact bilaterally Neck Neck: Yes normal visual inspection and Yes full ROM Resp Effort & Inspection: normal respiratory effort and able to speak in complete sentences GI Inspection: Yes distended Palpation (GI): Soft to palpation, not firm, nontender, no guarding and not rigid Neuro General: patient oriented x3, moves all extremities and CN's II-XI intact bilaterally Cranial nerves: Yes Equal, round and reactive pupils present Cognition (Neuro): normal cognition Extrem General: Yes normal to inspection, Yes full ROM and Yes capillary refill normal Psych Appearance: grossly normal Mental Status: mental status grossly normal Affect: normal affect Attitude: cooperative Thought process: Normal thought process present Thought content: Normal thought content present Insight: Good insight present (Psych) Course Course Course Narrative: RME, this is a rapid medical exam performed by Jw Kumar please refer to primary provider for complete H&P- 39 year old male with history of obesity and previous back surgery presents for evaluation of abdominal pain and constipation. He reports nausea and vomiting. Plan for labs and a KUB Medications Administered Discontinued Medications Generic Name Dose Route Start Last Admin Trade Name Freq PRN Reason Stop Dose Admin Diatrizoate Meglum/Diatrizoate Sod 30 ml 01/18/25 13:42 01/18/25 13:43 Diatrizoate Meglumine, Sodium 30 Ml Solution PO 01/18/25 13:43 30 ml ONCE ONE Administration Sodium Chloride 1,000 mls @ 999 mls/hr 01/18/25 11:15 01/18/25 12:32 Ns IV 01/18/25 12:15 Infused .Q1H1M KIMBERLY Infusion Iohexol 100 ml 01/18/25 13:37 01/18/25 13:38 Iohexol 350 Mg/Ml 100 Ml Infus..Btl IV 01/18/25 13:38 85 ml ONCE ONE Administration Medical Decision Making Medical Decision Making [facility] Narrative: Patient is a 39 year old assigned male at with a history of high cholesterol, asthma, hypertension, and chronic back pain presenting to the emergency department today with epigastric pain, constipation, and vomiting. Patient's physical exam was unremarkable. Patient's blood work showed a lipase of 139 but otherwise unremarkable. Patient's urine showed no acute process. Patient's CT abd/pelvis showed colonic diverticulosis without evidence of diverticulitis and moderate volume stool in the large colon but no evidence of obstruction. Patient's clinical presentation is consistent with mild pancreatitis secondary to wegovy use and constipation. I explained my physical exam findings as well as all test results to the patient and the patient's . I answered all questions asked by the patient and the patient's . I offered the patient an enema / bowel cleanse here in the department or prescription GoLvic for home cleanse and the patient opted for a home cleanse. I stressed the importance of the patient taking his medication as directed (either prescribed or as the over the counter packaging recommends). I stressed the importance of the patient following up with his primary care provider and a GI specialist. I stressed the importance of the patient returning to the emergency department immediately if her symptoms were to worsen or if she were to develop any dizziness, shortness of breath, difficulty breathing, chest pain, blurry vision, loss of vision, nausea, vomiting, abdominal pain, fever, chills, back pain, or any other complaints. Patient and the patient's verbalized agreement and understanding with this treatment plan and discharge. Differential Diagnosis Differential Diagnoses: The differential diagnosis associated with the presentation includes Abdominal pain Constipation Bowel obstruction Admission/Observation Consideration of admission/observation: Escalation of care including admission/observation considered Patient would have been admitted to the hospital had his work up had any findings where hospital admission was appropriate and his clinical presentation warranted hospital admission. Lab Data [facility] Lab Attestation statement: I reviewed the patient's lab results. My interpretation of these results are in the [facility] Rationale portion of this note. 01/18/25 10:44 01/18/25 10:44 Labs: Lab Results 01/18/25 01/18/25 Range/Units 10:44 12:05 WBC 8.4 (4.8-10.8) X10*3/uL RBC 5.35 (4.60-5.80) X10*6/uL Hgb 15.1 (14.0-18.0) g/dl Hct 44.7 (42.0-52.0) % MCV 83.6 (80.0-98.0) fL MCH 28.2 (27.0-33.0) pg MCHC 33.8 (31.0-36.0) g/dl RDW 12.8 (11.0-16.0) % Plt Count 178 (160-400) X10*3/uL MPV 9.9 (9.4-12.4) fL Immature Gran % (Auto) 0.4 (0.0-0.4) % Neut % (Auto) 68.8 (45-73) % Lymph % (Auto) 20.0 (20-40) % Alexander % (Auto) 8.9 (2-11) % Eos % (Auto) 1.7 (0-4) % Baso % (Auto) 0.2 (0-2) % Lymph # (Auto) 1.7 (1.2-4.9) X10*3/uL Alexander # (Auto) 0.8 (0.1-1.2) X10*3/uL Eos # (Auto) 0.1 (0.0-0.4) X10*3/uL Baso # (Auto) 0.0 (0.0-0.2) X10*3/uL Abs Immat Gran (auto) 0.03 (0.00-0.03) X10*3/uL Absolute Neuts (auto) 5.8 (2.0-8.3) x10*3/uL Absolute Nucleated RBC 0.000 (0.0-0.012) X10*3/uL Nucleated RBC % (auto) 0.0 (0.0-0.2) /100WBC Sodium 140 (135-145) mmol/L Potassium 3.9 (3.3-5.1) mmol/L Chloride 107 (96-108) mmol/L Carbon Dioxide 26 (22-29) mmol/L Anion Gap 11 L (12-20) BUN 15 (9-16) mg/dL Creatinine 0.81 (0.5-1.4) mg/dL Estim Creat Clear Calc 169.0 Estimated GFR > 60 Random Glucose 115 (60-115) mg/dL Calcium 8.7 (8.4-10.2) mg/dL Total Bilirubin 0.3 (0.0-1.0) mg/dL Direct Bilirubin 0.1 (0.0-0.5) mg/dL AST 17 (5-37) U/L ALT 24 (0-40) U/L Alkaline Phosphatase 87 (39-117) U/L Total Protein 7.0 (6.5-8.0) g/dL Albumin 4.2 (3.5-5.0) g/dL Lipase 139 H (8-78) U/L Urine Color Yellow Urine Appearance Clear Urine pH 6.5 (5.0-9.0) Ur Specific [place] <= 1.005 (1.005-1.025) Urine Protein Negative (Neg-Trace) mg/dL Urine Glucose (UA) Negative (Negative) mg/dL Urine Ketones Negative (Negative) mg/dL Urine Blood Negative (Negative) Urine Nitrite Negative (Negative) Ur Leukocyte Esterase Negative (Negative) Urine RBC 0-2 (0-2) /HPF Urine WBC 0-5 (0-5) /HPF Ur Squamous Epith Cells 0-2 (0-2) /HPF Urine Bacteria None Seen (None Seen) Hyaline Casts 0-2 (0-2) /LPF Independent Interpretation I performed an independent interpretation of an: CT Scan Interpretation: My interpretation is in agreement with the radiologist's impression of this imaging study. Report Number: [id number]: Total DLP = 1175.00 mGy-cm Reason for Exam: abd pain, constipation, concern for SBO EXAMINATION: CT ABDOMEN AND PELVIS WITH CONTRAST CLINICAL INFORMATION: Abdominal pain, constipation, concerning for small bowel obstruction. COMPARISON: CT 02/02/2021 TECHNIQUE: Multidetector volumetric images were obtained from the superior aspect of the liver through the pubic symphysis following administration 85 mL of Omnipaque 350 intravenous contrast. Sagittal and coronal reformatted images were obtained on the technologist's workstation. Oral contrast: Yes This CT examination was performed using dose optimization techniques as appropriate, variously including the following: *Automated exposure control *Adjustment of mA and/or kV according to patient size (this includes techniques or standardized protocols for targeted exams where dose is matched to indication/reason for exam; i.e. extremities or head) *Use of iterative reconstruction technique FINDINGS: LUNG BASES: No focal consolidation. No effusion. LIVER, GALLBLADDER, AND BILIARY TREE: No focal lesions. No biliary duct dilatation. The gallbladder is unremarkable with no evidence of radiopaque gallstones, gallbladder wall thickening, or obvious pericholecystic inflammatory changes. PANCREAS: Unremarkable. No inflammatory changes. SPLEEN: Unremarkable. ADRENAL GLANDS: Unremarkable. KIDNEYS AND URETERS: Symmetric renal enhancement. No suspicious lesions. No hydronephrosis. No renal or ureteral calculi. No significant perinephric stranding. BLADDER: Partially distended, within normal limits. GASTROINTESTINAL TRACT: Oral contrast is seen in the bowel loops, extending through the large colon to the rectum. No evidence of bowel obstruction. Scattered colonic diverticuli. No inflammatory changes identified to suggest diverticulitis. Moderate volume stool in the colon. Appendix appears unremarkable. Stomach is nondistended. No free fluid. No free air. ABDOMINAL WALL: Small fat-containing umbilical hernia. LYMPH NODES: No pathologically enlarged lymph nodes. VASCULAR: Normal caliber aorta. PELVIC VISCERA: Unremarkable. OSSEOUS STRUCTURES: No acute or suspicious osseous findings. Scattered mild disc degenerative changes. CT/CT abdomen pelvis w IV con IMPRESSION: * Colonic diverticulosis without evidence of diverticulitis. Moderate volume stool in the large colon. No findings to suggest bowel obstruction. Follow-up imaging as clinically indicated. * No acute intra-abdominal findings otherwise identified. Fleischner guidelines were followed. Electronically signed by: Mauricio Garcia MD 01/18/2025 02:11 PM EDT Dictated By: Mauricio Garcia MD Signed By: Electronically signed by Mauricio Garcia MD 01/18/25 1411 Radiology Impression Discussion of test interpretation with radiology: I have reviewed the radiologist's reading. Independent Historian Clinical information obtained from an independent historian. History obtained from or confirmed by: Spouse (Patient's provided additional history and confirmed the history provided by the patient. ) Discharge Plan Discharge Clinical Impression: Elevated lipase Constipation Qualifiers: Constipation type: other constipation type Qualified Code(s): K59.09 - Other constipation Patient Disposition: Home, Self-Care Instructions: Constipation (DC) Additional Instructions: Your CT scan showed constipation but no other acute process. Use the medication I have prescribed. Make sure to stay hydrated while you clense your bowels. IF you are prescribed home medications and/or you are taking over the counter medications at home - it is very important you continue to do so as prescribed / directed unless told otherwise. Follow up with your primary care provider and a GI specialist. Return to the emergency department immediately if your symptoms worsen or if you develop any numbness, tingling, dizziness, shortness of breath, difficulty breathing, chest pain, blurry vision, loss of vision, nausea, vomiting, abdominal pain, fever, chills, back pain, or any other complaints. Please see the information below about our Patient Portal. If you are not yet enrolled in the [facility] Patient Portal, you will receive an enrollment email invitation following your visit to any [facility] care setting. You may also self-enroll in the Patient Portal by visiting our website: [email or web address] The following information is required to access the Patient Portal: - Your [facility] Medical Record Number - Your personal home email address (must match what is in your electronic medical record, Registration staff can assist with this) - Name - Date of Capabilities of the Patient Portal: - Message some providers - View upcoming appointments - Access your health summary, medical history, and visit history - View current conditions and allergies - View procedure and lab results - View your medications, including guidelines, side effects, and precautions - Complete pre-appointment questionnaires requested by your provider - Ready summary reports of your office visits and procedures To access the Patient Portal Mobile Lupe, follow these directions: - Search Outcome Referrals in the [employer] Store or [employer] Store - Download the Lupe - Search for [facility] - Enter your login/password Prescriptions: New peg 3350-electrolytes [Golytely] 236-22.74-6.74 -5.86 gram recon soln 25 ml PO Q1M Qty: 4000 0RF Rx Instructions: until fecal effluent is clear No Action prednisone 20 mg tablet 40 mg PO DAILY 5 Days Qty: 10 0RF acetaminophen [Tylenol Extra Strength] 500 mg tablet 500 mg PO Q6H PRN (Reason: fever or pain) Qty: 14 0RF lidocaine [Lidoderm] 5 % adhesive patch,medicated 1 patch topical DAILY MDD remove after 12 hours PRN (Reason: pain) Qty: 30 0RF Rx Instructions: leave on most painful area for up to 12 hrs naproxen 500 mg tablet 500 mg PO BID PRN (Reason: pain) 10 Days Qty: 20 0RF cyclobenzaprine 5 mg tablet 5 mg PO Q8H PRN (Reason: pain (scale score 7-10)) 5 Days Qty: 14 0RF cyclobenzaprine 10 mg tablet 10 mg PO TID PRN (Reason: muscle spasm) Qty: 14 0RF prednisone 10 mg tablet 10 mg PO DAILY Qty: 20 0RF Taper: Prednisone 40 mg daily for 3 Days and 0 Hour 30 mg daily for 3 Days and 0 Hour 20 mg daily for 3 Days and 0 Hour 10 mg daily for 3 Days and 0 Hour Rx Instructions: prednisone 10 mg: take 4 tablets (40 mg) for 2 days; 3 tablets (30 mg) for 2 days; 2 (20mg) tablets for 2 days and then 1 (10mg) tablet for 2 days tramadol 50 mg tablet 50 mg PO Q8H PRN (Reason: pain, severe) Qty: 9 0RF acetaminophen [Tylenol Extra Strength] 500 mg tablet 500 mg PO Q6H PRN (Reason: fever or pain) Qty: 14 0RF lidocaine [Lidoderm] 5 % adhesive patch,medicated 1 patch topical DAILY MDD remove after 12 hours PRN (Reason: pain) Qty: 30 0RF Rx Instructions: leave on most painful area for up to 12 hrs naproxen 500 mg tablet 500 mg PO BID PRN (Reason: pain) 10 Days Qty: 20 0RF atorvastatin 20 mg tablet 1 tab PO DAILY amlodipine 10 mg tablet 1 tab PO DAILY lisinopril 10 mg tablet 1 tab PO DAILY omeprazole magnesium [Prilosec OTC] 20 mg tablet,delayed release (DR/EC) 20 mg PO BID Qty: 60 0RF cyclobenzaprine 10 mg tablet 10 mg PO TID PRN (Reason: muscle spasm) 7 Days Qty: 21 0RF amoxicillin 500 mg capsule 1,000 mg PO DAILY 10 Days Qty: 20 0RF Referrals: [facility] Gastroenterology Services [Provider Group, Gastroenterology] Referral Note: Call to establish and follow up with a GI Specialist. Stand Alone Forms: Work/School Release Interventions: ED Discharge Assessment Last Done: 01/18/25 14:54 Discharge Date/Time: 01/18/25 14:55 Print Language: Turkish
[2025-01-18 10:48] LABS: MANUAL DIFF FLAG NO
[2025-01-18 10:58] LABS: Hematocrit 44.7 % (42.0-52.0); Hemoglobin 15.1 g/dl (14.0-18.0); Imm Gran Abs Auto 0.03 X10*3/uL (0.00-0.03); Imm Gran Pct Auto 0.4 % (0.0-0.4); Lymphocytes Absolute Auto 1.7 X10*3/uL (1.2-4.9); Mean Corpuscular HGB Conc 33.8 g/dl (31.0-36.0); Mean Corpuscular Hemoglobin 28.2 pg (27.0-33.0); Mean Corpuscular Volume 83.6 fL (80.0-98.0); NRBC Abs Auto 0.000 X10*3/uL (0.0-0.012); NRBC Pct Auto 0.0 /100WBC (0.0-0.2); Platelet Count 178 X10*3/uL (160-400); Red Blood Count 5.35 X10*6/uL (4.60-5.80); White Blood Count 8.4 X10*3/uL (4.8-10.8)
[2025-01-18 11:04] LABS: Alanine Aminotransferase 24 U/L (0-40); Albumin Level 4.2 g/dL (3.5-5.0); Alkaline Phosphatase 87 U/L (39-117); Anion Gap 11 (12-20); Aspartate Amino Transferase 17 U/L (5-37); Blood Urea Nitrogen 15 mg/dL (9-16); Calcium 8.7 mg/dL (8.4-10.2); Carbon Dioxide 26 mmol/L (22-29); Chloride 107 mmol/L (96-108); Creatinine Clr Calc Pharmacy 169.0; Estimated Glomerular Filt Rate > 60; Lipase 139 U/L (8-78); Potassium 3.9 mmol/L (3.3-5.1); Sodium 140 mmol/L (135-145); Total Protein 7.0 g/dL (6.5-8.0)
[2025-01-18 12:21] LABS: Appearance Urine Clear; Glucose Urine UA Negative (Negative); PH 6.5 (5.0-9.0); Specific Gravity - Urine <= 1.005 (1.005-1.025)
--- OUTSIDE RECORDS SUMMARY | 2025-01-18 13:21 | XMS_ITS | Clinical Summary ---
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 Role Phone El [place] MD Primary Care Provider Unavailabl e Immunizations Immunization Administration Dates Next Due DT 09/22/1996 DTP 06/30/1988, 5,03/01/1984,1983,1983 Hep B, ped/adol 05/20/1996, 7,09/30/1995,1995 Hib (HbOC) 08/30/1985 Influenza Split 01/06/1999 Influenza, injectable, trivalent 01/06/1999 MMR 06/30/1994,11/30/1984 OPV 06/30/1988, 5,11/30/1984,1983,1983 Td (adult) (Teniva), 5 Lf t etanus toxoid, PF, adsorbed 08/30/1996 Social History Tobacco Use Types Packs/Day Years Used Date Smoking Tobacco: Never Assessed Sex and Gender Information Value Date Recorded Sex Assigned at Not on file Legal Sex Male 3:53 PM EDT Gender Identity Not on file Sexual Orientation Not on file Plan of Treatment Health Maintenance Due Date Last Done Comments Varicella Vaccines (1 of 2 - 13+ 2-dose series) 09/05/1996 DTaP,Tdap,and Td Vaccines (5 - Tdap) 09/23/1996 09/22/1996, 08/30/1996, 06/30/1988, Additional history exists HPV Vaccines (1 - 3-dose SCDM series) 09/05/2010 Influenza Vaccines (#1) 2024 01/06/1999, 01/06 COVID-19 Vaccine ( season) 2024 HIB Vaccines Completed 08/30/1985 IPV Vaccines Completed 06/30/1988, 1204/1984, 11/30/1984, Additional history exists MMR Vaccines Completed 06/30/1994, 11/30/1984 Hepatitis B Vaccines Completed 05/20/1996, 05/02/1996, 09/30/1995, Additional history exists Hepatitis A Vaccines Aged Out No long er eligible based on patient's age to complete this topic Men B Vaccine Aged Out No longer elig ible based on patient's age to complete this topic Meningococcal Vaccine Aged Out No bobby shannan eligible based on patient's age to complete this topic Pneumococcal Vaccine Aged Out No long er eligible based on patient's age to complete this topic 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
--- OUTSIDE RECORDS SUMMARY | 2025-01-18 13:21 | XMS_ITS | Clinical Summary ---
Author Organization [facility] Address [address] [facility] [address] [place] [id number] Phone Care Team Providers Care Gastrointestinal Technician Name Role Phone Pcp, Unknown Primary Care Provider Unavailabl e Allergies No known active allergies Medications No known medications Social History Tobacco Use Types Packs/Day Years Used Date Smoking Tobacco: Never Assessed Education Answer Date Recorded Are you interested in more education? Not on cecille e 05/19/2024 Are you concerned about learning? Not on file 05/19/2024 No 05/19/2024 No 05/19/2024 Digital Access Answer Date Recorded No 05/19/2024 No 05/19/2024 Reliable internet access at home? Not on file 05/19/2024 Device with a working camera? Not on file Intimate Partner Violence Answer Date R ecorded Are you denied basic needs s uch as food, clothing, or medical care? No 05/19/2024 In the past 12 months have y ou been in a relationship with a person who hurts, threatens, or tries to control you? No 05/19/2024 Are you denied basic needs s uch as food, clothing, or medical care? No 05/19/2024 In the past 12 months have y ou been in a relationship with a person who hurts, threatens, or tries to control you? No 05/19/2024 Sex and Gender Information Value Date Recorded Sex Assigned at Male 05/19/2024 2:31 PM EST Legal Sex Male 2:20 PM EST Gender Identity Male 05/19/2024 2:31 PM EST Sexual Orientation Straight 05/19/2024 2: 31 PM EST Last Filed Vital Signs Vital Sign Reading Time Taken Comments Blood Pressure 154/109 05/19/2024 4:26 PM EST Pulse 75 05/19/2024 4:26 PM EST Temperature 36.2 C (97.2 F) 05/19/2024 4:26 PM EST Respiratory Rate 16 05/19/2024 4:26 PM EST Oxygen Saturation 95% 05/19/2024 4:26 PM EST Inhaled Oxygen Concentration - - Weight 117.9 kg (260 lb) 05/19/2024 2:27 PM EST Height 175.3 cm (5' 9 ) 05/19/2024 2:27 PM EST Body Mass Index 38.4 05/19/2024 2:27 PM EST Plan of Treatment Health Maintenance Due Date Last Done Comments Adult Td,Tdap Booster 1983 LIPID PANEL 1983 DEPRESSION SCREENING 1995 SMOKING Hx and SMOKELESS TOB ACCO SCREENING 09/05/1996 HEPATITIS C SCREENING 09/05/2001 HIV ONE-TIME SCREENING (18-6 5 YEARS) 09/05/2001 SCREENING FOR DIABETES 09/05/2018 INFLUENZA VACCINE (#1) 2024 COVID-19 VACCINE (2024-2 6 season) 2024 HEPATITIS A VACCINES Aged Out No long er eligible based on patient's age to complete this topic HIB VACCINES Aged Out No longer eligi ble based on patient's age to complete this topic MENINGOCOCCAL VACCINES (ACWY) Aged Out No longer eligible based on patient's age to complete this topic MENINGOCOCCAL VACCINES (B) Aged Out N o longer eligible based on patient's age to complete this topic PNEUMOCOCCAL VACCINES (0-49 years) Aged Out No longer eligible based on patient's age to complete this topic Medical Devices Not on file Insurance [facility] [address] [place], [place] [address] [place], [place] [address] [place], [place] [address] [facility] [place] [facility] Care Teams Gastrointestinal Technician Relationship Specialty Start Date End Date Pcp, Unknown PCP - General 05/19/24 Additional Source Comments The information contained in this document represents components of the legal health record. It is not the complete legal health record.[facility]
--- OUTSIDE RECORDS SUMMARY | 2025-01-18 13:21 | XMS_ITS | Clinical Summary ---
Author Organization [address] Address [address] [place] [phone] Phone Care Team Providers Care Retreader Name Role Phone Shameka Talavera MD Primary Care Provider [phone] Allergies No known active allergies Medications albuterol HFA (ProAir HFA) 90 mcg/actuation inhaler Inhale 2 puffs by mouth every 6 (six) hours if needed. 3 Active amLODIPine (NORVASC) 10 mg tablet Take 1 tablet (10 mg total) by mouth 1 (one) time each day. 5 Active lisinopriL (PRINIVIL,ZESTR IL) 10 mg tablet Take 1 tablet (10 mg total) by mouth 1 (one) time each day. 4 Active miscellaneous medical supply misc at bedtime. CPAP Dx Sleep Apnea Active docusate sodium (COLACE) 100 mg capsule Take 1 capsule (100 mg total) by mouth 2 (two) times a day if needed. for constipation 5 Active rosuvastatin (CRESTOR) 20 mg tablet Take 1 tablet (20 mg total) by mouth 1 (one) time each day. 5 Active senna 8.6 mg tablet TAKE 2 TABLETS BY MOUTH DAILY AT BEDTIME NEEDED FOR CONSTIPATION. 5 Active Active Problems Problem Noted Date Diagnosed Date Sacroiliitis, not elsewhere classified (CMS/HCC V24) 12/17/2024 Assessment & Plan (12/17/2024 4:21 PM EDT): Mr. Taylor was last seen in our office in May 2023 after physical therapy helped his back and leg pain. He was still getting some back pain but only with certain movements. He has continued with his physical therapy exercises but unfortunately over the past 6 months he has developed right sided low back pain down the anterior aspect of the right leg. He is taking NSAIDs but they just do not seem to help. On exam he had pain with palpation of the right SI joint. Will's maneuver was positive on the right as were Gaenslen's test and SI joint compression test. He had minimal tenderness at the right greater trochanteric bursa. I explained to Mr. Taylor that I thought the problem is coming from his SI joint. I gave him a prescription for physical therapy directed at that and also a prescription for an SI joint belt. Will arrange for a right SI joint injection with interventional radiology at [facility]. He can follow-up with us if things do not improve. Does not get better with the above measures, I would not hesitate to get an MRI of the lumbar spine with and without contrast. Encounters Date Type Department Care Team Description 01/08/2025 12:48 PM EDT - 01/08/2025 11:59 PM EDT Hospital Encounter [facility] Interventional Radiology [address] [place] [phone] Sacroiliitis, not elsewhere classified (CMS/HCC V24) Discharge Disposition: Home or Self Care 12/22/2024 Telephone Neurosurgery [facility] [address] [phone] Latisha Bella [place] 12/17/2024 3:00 PM EDT Office Visit [facility] [address] [phone] Wolf Chicas [place] Sacroiliitis, not elsewhere classified (CMS/HCC V24) (Primary Dx) from Last 3 Months Surgical History Surgery Date Site/Laterality Comments OTHER SURGICAL HISTORY 03/09/2022 PROCEDURE: GA LAMNOTMY INCL W/DCMPRSN NRV ROOT 1 INTRSPC LUMBR; COMMENT: left L4-5 discectomy, Dr. Cota Medical History Medical History Date Comments Mild intermittent asthma, uncomplicated DX:Mild intermittent asthma, uncomplicated Chronic back pain DX:Chronic molly k pain Epigastric pain DX:Epigastric pa in Mixed hyperlipidemia DX:Mixed hy perlipidemia Essential (primary) hypertension DX:Essential (primary) hypertension Morbid obesity (CMS/HCC V24, CMS/HCC V28) DX:Morbid obesity (HCC) Chronic pharyngitis DX:Chronic p haryngitis Social History Tobacco Use Types Packs/Day Years Used Date Smoking Tobacco: Never Smokeless Tobacco: Never Tobacco Cessation:Counseling Given: Not Answered Sex and Gender Information Value Date Recorded Sex Assigned at Not on file Legal Sex Male 4:35 AM EST Gender Identity Not on file Sexual Orientation Not on file Obstetrics History Last Filed Vital Signs Vital Sign Reading Time Taken Comments Blood Pressure 140/90 01/02/2022 12:26 PM EDT Pulse 84 01/02/2022 12:26 PM EDT Temperature - - Respiratory Rate 16 08/21/2024 8:26 AM EDT Oxygen Saturation - - Inhaled Oxygen Concentration - - Weight 138 kg (304 lb) 08/21/2024 8:26 AM EDT Height 175.3 cm (5' 9 ) 08/21/2024 8:26 AM EDT Body Mass Index 44.89 08/21/2024 8:26 AM EDT Plan of Treatment Health Maintenance Due Date Last Done Comments Hepatitis A Vaccines (1 of 2 - Risk 2-dose series) 09/05/2002 HPV Vaccines (1 - 3-dose SCDM series) 09/05/2010 Pneumococcal Vaccine: Pediatrics (0 to 5 Years) and At-Risk Patients (6 to 49 Years) (2 of 2 - PCV) 03/27/2020 03/27/2019 Cholesterol Screening (Lipid Panel) 03/04/2022 HIV Screening 03/04/2022 Hepatitis C Screening 03/04/2022 Social Influencers of Health Screening 03/04/2022 Hypertension/CHF/CAD Annual BMP Blood Test 05/15/2023 Depression Screening 04/01/2024 COVID-19 Vaccine ( - season) 2024 08/04/2020, 07/07/2020 Influenza Vaccine (#1) 2024 03/20/2019, 1998 DTaP,Tdap,and Td Vaccines (9 - Td or Tdap) 03/20/2029 03/20/2019, 02/06/2017, 09/22/1996, Additional history exists RSV Immunization Adult Patients (1 - 1-dose 75+ series) 09/05/2058 HIB Vaccines Completed 08/30/1985 IPV Vaccines Completed 06/30/1988, 12/04/1984, 11/30/1984, Additional history exists MMR Vaccines Completed 06/30/1994, 11/30/1984 Hepatitis B Vaccines Completed 02/08/2017, 05/20/1996, 05/02/1996, Additional history exists Meningococcal ACWY Vaccine Aged Out N o longer eligible based on patient's age to complete this topic Meningococcal B Vaccine Aged Out No l onger eligible based on patient's age to complete this topic RSV Immunization Patients Under 20 months Aged Out No longer eligible based on patient's age to complete this topic Varicella Vaccines Aged Out No longer eligible based on patient's age to complete this topic Procedures Procedure Name Priority Date/Time Associated Diagnosis Comments IR INJ SACROILIAC JT ANES/STEROID RIGHT Routine 01/08/2025 1:35 PM EDT Sacroiliitis, not elsewhere classified (CMS/[facility] V24) from Last 3 Months Results * IR Inj Sacroiliac Jt Anes/Steroid Right (01/08/2025 1:35 PM EDT) Anatomical Region Laterality Modality Right Interventional R adiology 01/12/2025 12:5 6 PM EDT Impressions 01/12/2025 12:56 PM EDT Right-sided CT-guided SI joint injection. -------- FINAL REPORT -------- Dictated By: Alejandra Reed Dictated Date: 01/12/2025 12:56 ET Assigned Physician: Alejandra Reed Reviewed and Electronically Signed By: Alejandra Reed Signed Date: 01/12/2025 12:56 ET Workstation ID: [id number] Transcribed By: Self Edit Transcribed Date: 01/12/2025 12:56 ET Narrative 01/12/2025 12:56 PM EDT INDICATION: Right lower back pain PROCEDURE: Right CT-guided SI joint injection under conscious sedation prior relevant studies: none MEDICATIONS: Local anesthesia: 10 cc of 1% buffered lidocaine administered subcutaneously. Sedation: None Other: 80 mg of Depot Medrol mixed with 2 mL of bupivacaine Scanner: GT Solar speed 16 slice VCT Dose reduction technique: ASIR (Adaptive statistical iterative reconstruction) and/or AEC (automated exposure control) Dose: total exam DLP 193.5. mGY per cm TECHNIQUE: Informed consent obtained. Patient placed prone on the CAT scan table and multiple axial images obtained of the pelvis for localization. After localization the site was draped and prepped sterilely. Timeout performed followed by administration of local anesthetic. Under CT fluoroscopic guidance a 22-gauge needle was advanced into the posterior aspect of the inferior SI joint. FINDINGS: Initial axial images obtained for localization. CT fluoroscopic images confirm needle positioning within the posterior aspect of the localized joint. Procedure Note Alejandra Reed MD - 01/12/2025 INDICATION: Right lower back pain PROCEDURE: Right CT-guided SI joint injection under conscious sedation prior relevant studies: none MEDICATIONS: Local anesthesia: 10 cc of 1% buffered lidocaine administeredsubcutaneously. Sedation: None Other: 80 mg of Depot Medrol mixed with 2 mL of bupivacaine Scanner: Prestadero bright speed 16 slice VCT Dose reduction technique: ASIR (Adaptive statistical iterativereconstruction) and/or AEC (automated exposure control) Dose: total exam DLP 193.5. mGY per cm TECHNIQUE: Informed consent obtained. Patient placed prone on the CAT scantable and multiple axial images obtained of the pelvis for localization.After localization the site was draped and prepped sterilely. Timeoutperformed followed by administration of local anesthetic. Under CTfluoroscopic guidance a 22-gauge needle was advanced into the posterioraspect of the inferior SI joint. FINDINGS: Initial axial images obtained for localization. CT fluoroscopicimages confirm needle positioning within the posterior aspect of thelocalized joint. IMPRESSION: Right-sided CT-guided SI joint injection. -------- FINAL REPORT -------- Dictated By: Alejandra Reed Dictated Date: 01/12/2025 12:56 ET Assigned Physician: Alejandra Reed Reviewed and Electronically Signed By: Derek, Parshant Signed Date: 01/12/2025 12:56 ET Workstation ID: [id number] Transcribed By: Self Edit Transcribed Date: 01/12/2025 12:56 ET Wolf [facility] IMG IR PROCEDURES Final Resul t from Last 3 Months Insurance [facility] Care Teams Retreader Relationship Specialty Start Date End Date Shameka Talavera MD [address] [place] [address] [phone] PCP - General Internal Medicine 12/17/24
[2025-01-18] MEDS: iohexoL 350 MG/ML 100 ML INFUS..BTL IV (13:38)
[2025-01-18 13:55] VITALS: BP 134/79; PULSE 73; RESP 16; TEMP 36.8; O2SAT 97
[2025-01-18 14:54] VITALS: BP 134/79; PULSE 73; RESP 16; TEMP 36.8; O2SAT 97
== END 2025-01-18 14:55 | disposition home or self-care (01) ==
PROVIDERS: Physician Assistant; Emergency Provider Emergency Medicine; PCP Obstetrics & Gynecology
DX: K59.09 Other constipation (principal); R74.9 Abnormal serum enzyme level, unspecified; R11.2 Nausea with vomiting, unspecified; Z79.85 Long-term (current) use of injectable non-insulin antidiabetic drugs; Z79.899 Other long term (current) drug therapy
CPT/HCPCS: 36415; 74018; 74177; 80048; 80076; 81001; 83690; 85025; 96360; 99283; 99285; Q9967

== ENCOUNTER → 2025-01-18 10:16 | Outpatient (BNV) | payer OTHER, SELFPAY | PROVIDERS: PCP Obstetrics & Gynecology; Visit Provider Radiology Diagnostic Radiology | DX: K57.30 Diverticulosis of large intestine without perforation or abscess without bleeding (principal); K59.00 Constipation, unspecified | CPT/HCPCS: 74018; 74177 ==